=== PATIENT | male | born 1970 | race Caucasian/White ===

== ENCOUNTER 2019-03-29 10:14 | Outpatient (RCR) | payer OTHER, SELFPAY ==
[2019-03-29 10:30] VITALS: BP_SYST 150
--- NOTE | 2019-03-29 11:33 | PTOPEVAL ---
PHYSICAL THERAPY EVALUATION AND PLAN OF CARE 03-29-2019 The PT evaluation was completed for the diagnosis of L shoulder pain. The plan of treatment is for 1x/week for 4 weeks. Thank you for referring this patient to [facility]. Please review, sign, date and return this plan of care [facility]. I agree with and certify that the following plan of care is medically necessary. 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 Cardiovascular History Hx Cardiac Surgery Yes: 2 cardiac stents Hx Hypertension Yes: meds Hx Myocardial Infarction Yes: [place] x 1; Respiratory History Hx Chronic Obstructive Pulmonary Disease Yes: inhaler PRN (COPD) Hx Other Respiratory Disorders Yes: seasonal allergies Gastrointestinal History Hx Gastrointestinal Disorders No Significant History Musculoskeletal History Hx Spinal Surgery Yes: back surgery 2013 2x- lumbar laminectomy & discectomy Endocrine History Hx Diabetes Yes: borderline, monitoring HEENT History Hx HEENT Disorders No Significant History Integumentary History Hx Skin Disorders No Significant History Evaluation Information Problem Diagnosis L shoulder pain Onset 2&1/2 months Subjective Information gradual increase in pain, no Query Text:As Reported By Patient/ trauma or injury to shoulder/ Family arm; possibly due to repetitive and overhead work; Diagnostic Tests X-Rays For This Problem No MRI For This Problem No Other Tests For This Problem No Previous Treatments Previous Treatments For This Problem no PT for shoulder Prior Level of Function Activity Level (Last 3 Months) 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
--- NOTE | 2019-05-05 10:41 | PCPTNOTE ---
PHYSICAL THERAPY DISCHARGE 05-05-2019 Attending Provider: Lamine Lane MD Patient:Job Hassan Date of :1970 Mr. Hassan has not returned for any further treatments since the PT evaluation on 03/29/2019, for the diagnosis of L shoulder pain. Therefore he will be discharged from therapy at this time. The goals were not assessed. Thank you for referring Job to [facility]. Please review, sign, date and return this discharge summary [facility]. I have been updated about the patient's current status and I agree with discharge from the above service at this time. Referring Physician Date
== END 2019-05-05 11:02 | disposition home or self-care (01) ==
LOC: ANHPT 10:14
PROVIDERS: PCP Family Medicine; Visit Provider Family Medicine
DX: M25.512 Pain in left shoulder (principal)
CPT/HCPCS: 97110; 97161

== ENCOUNTER 2019-04-08 06:34 | Outpatient (CLI) | payer OTHER, SELFPAY ==
[2019-04-08 08:33] LABS: Basophils Absolute Auto 0.1 K/mm3 (0.0-0.1); Basophils Percent Auto 1.2 % (0.2-1.2); Eosinophils Absolute Auto 0.1 K/mm3 (0-0.3); Eosinophils Percent Auto 2.1 % (0-4.4); Hematocrit 40.2 % (42.0-52.0); Hemoglobin 13.3 g/dL (14.0-18.0); Immature Granulocyte Absolute 0.03 K/mm3 (0.00-0.031); Immature Granulocyte Percent A 0.5 % (0-0.5); Immature Platelet Fraction Pct 5.2 % (0.9-11.2); Lymphocytes Absolute Auto 1.53 K/mm3 (0.9-3.2); Lymphocytes Percent Auto 26.7 % (18.3-44.2); Mean Corpuscular HGB Conc 33.1 g/dl (32-36); Mean Corpuscular Hemoglobin 27.9 pg (26-34); Mean Corpuscular Volume 84.3 fl (80-100); Mean Platelet Volume 11.3 fl (7.4-10.4); Monocytes Absolute Auto 0.5 K/mm3 (0.1-0.6); Monocytes Percent Auto 8.9 % (2.6-8.5); Neutrophils Absolute Auto 3.5 K/mm3 (1.3-6.7); Neutrophils Percent Auto 60.6 % (45.5-73.1); Platelet Count Result 208 k/mm3 (150-375); Red Blood Count 4.77 M/mm3 (4.6-6.20); Red Cell Distribution Width 12.1 % (11.5-14.5); White Blood Count 5.7 K/mm3 (4.5-10.0)
[2019-04-08 08:45] LABS: Alanine Aminotransferase 39 U/L (4-50); Albumin Level 4.7 g/dL (3.5-5.1); Alkaline Phosphatase 51 U/L (38-126); Aspartate Amino Transferase 40 U/L (17-59); Bilirubin,Total 0.5 mg/dL (0.2-1.3); Blood Urea Nitrogen 20 mg/dL (9-20); Calcium 9.5 mg/dL (8.4-10.2); Carbon Dioxide 28 mmol/L (22-30); Chloride 99 mmol/L (98-107); Cholesterol 179 mg/dL (0-200); Estimated Glomerular Filt Rate > 60; Glucose 113 mg/dL (75-110); HDL Direct 31 mg/dL; Potassium 3.9 mmol/L (3.4-5.0); Sodium 140 mmol/L (137-145); Triglycerides 148 mg/dL (<150)
[2019-04-08 08:56] LABS: LDL Cholesterol Direct 133 mg/dL
[2019-04-08 08:59] LABS: Alanine Aminotransferase 39 U/L (4-50); Albumin Level 4.6 g/dL (3.5-5.1); Alkaline Phosphatase 53 U/L (38-126); Aspartate Amino Transferase 39 U/L (17-59); Bilirubin,Total 0.4 mg/dL (0.2-1.3); Blood Urea Nitrogen 19 mg/dL (9-20); Calcium 9.5 mg/dL (8.4-10.2); Carbon Dioxide 27 mmol/L (22-30); Chloride 99 mmol/L (98-107); Estimated Glomerular Filt Rate > 60; Glucose 114 mg/dL (75-110); Potassium 3.8 mmol/L (3.4-5.0); Sodium 140 mmol/L (137-145)
[2019-04-08 09:15] LABS: Prostate Specific Antigen 0.6 ng/mL (< OR = 4.0)
== END 2019-04-08 06:35 | disposition home or self-care (01) ==
PROVIDERS: Internal Medicine Cardiovascular Disease; PCP Family Medicine; Visit Provider Family Medicine
DX: E78.5 Hyperlipidemia, unspecified (principal); I10 Essential (primary) hypertension; E78.2 Mixed hyperlipidemia; Z12.5 Encounter for screening for malignant neoplasm of prostate
CPT/HCPCS: 36415; 80048; 80053; 80061; 80076; 82248; 84153; 85025; 85055

== ENCOUNTER 2020-04-13 07:00 | Outpatient (CLI) | payer OTHER, SELFPAY ==
[2020-04-13 07:32] LABS: Basophils Absolute Auto 0.1 K/mm3 (0.0-0.1); Basophils Percent Auto 1.6 % (0.2-1.2); Eosinophils Absolute Auto 0.2 K/mm3 (0-0.3); Eosinophils Percent Auto 3.7 % (0-4.4); Hematocrit 41.5 % (42.0-52.0); Hemoglobin 14.3 g/dL (14.0-18.0); Immature Granulocyte Absolute 0.01 K/mm3 (0.00-0.031); Immature Granulocyte Percent A 0.2 % (0-0.5); Lymphocytes Absolute Auto 1.83 K/mm3 (0.9-3.2); Lymphocytes Percent Auto 35.7 % (18.3-44.2); Mean Corpuscular HGB Conc 34.5 g/dl (32-36); Mean Corpuscular Hemoglobin 28.4 pg (26-34); Mean Corpuscular Volume 82.3 fl (80-100); Mean Platelet Volume 10.2 fl (7.4-10.4); Monocytes Absolute Auto 0.5 K/mm3 (0.1-0.6); Monocytes Percent Auto 9.2 % (2.6-8.5); Neutrophils Absolute Auto 2.6 K/mm3 (1.3-6.7); Neutrophils Percent Auto 49.6 % (45.5-73.1); Platelet Count Result 199 k/mm3 (150-375); Red Blood Count 5.04 M/mm3 (4.6-6.20); Red Cell Distribution Width 11.8 % (11.5-14.5); White Blood Count 5.1 K/mm3 (4.5-10.0)
[2020-04-13 07:45] LABS: Alanine Aminotransferase 43 U/L (4-50); Albumin Level 4.5 g/dL (3.5-5.1); Alkaline Phosphatase 47 U/L (38-126); Anion Gap 8 mmol/L (8-16); Aspartate Amino Transferase 38 U/L (17-59); Bilirubin,Total 0.5 mg/dL (0.2-1.3); Blood Urea Nitrogen 20 mg/dL (9-20); Calcium 9.2 mg/dL (8.4-10.2); Carbon Dioxide 26 mmol/L (22-30); Chloride 106 mmol/L (98-107); Cholesterol 184 mg/dL (0-200); Estimated Glomerular Filt Rate > 60; Glucose 126 mg/dL (75-110); HDL Direct 28 mg/dL; Potassium 4.4 mmol/L (3.4-5.0); Sodium 140 mmol/L (137-145); Triglycerides 206 mg/dL (<150)
[2020-04-13 07:56] LABS: LDL Cholesterol Direct 126 mg/dL
[2020-04-13 08:51] LABS: Thyroid Stimulating Hormone Reflex 0.504 uIU/mL (0.465-4.68)
[2020-04-16 19:08] LABS: PSA, Total 0.5 ng/mL (<=4.0)
== END 2020-04-13 07:01 | disposition home or self-care (01) ==
LOC: ANHLAB 07:02
PROVIDERS: PCP Family Medicine; Visit Provider Internal Medicine Cardiovascular Disease
DX: Z13.9 Encounter for screening, unspecified (principal); E78.2 Mixed hyperlipidemia
CPT/HCPCS: 36415; 80053; 80061; 83036; 84153; 84154; 84443; 85025

== ENCOUNTER → 2020-05-10 07:01 | Outpatient (CLI) | payer OTHER, SELFPAY ==
[2020-05-11 01:42] LABS: SARS-CoV-2 RNA PCR Negative
== END ==
PROVIDERS: PCP Family Medicine; Visit Provider Nurse Practitioner Family
DX: Z20.822 Contact with and (suspected) exposure to COVID-19 (principal)
CPT/HCPCS: C9803; U0003; U0005

== ENCOUNTER → 2020-06-27 13:32 | Outpatient (CLI) | payer OTHER, SELFPAY ==
--- NOTE | ~2020-06-27 | XR_ITS ---
XR hip LT 2V w AP pelvis DATE: 06/27/2020 13:51 INDICATION: Left hip injury TECHNIQUE: AP pelvis. AP and lateral views of left hip COMPARISON: 07/01/2013 left hip FINDINGS: Right sided lumbar pedicles screws and rods and interbody spinal fusion at L4-5 and L5-S1. The pubic symphysis and sacroiliac joints are intact. No pelvic fracture or bone destruction is detected. No fracture, dislocation, avascular necrosis or bone destruction of the left hip. Hip joint spaces ar e symmetric. IMPRESSION: Status post lumbar spinal fusion Reviewed, dictated and finalized at location A.
== END ==
PROVIDERS: PCP Family Medicine; Visit Provider Physician Assistant Medical
DX: S79.912A Unspecified injury of left hip, initial encounter (principal); Z98.1 Arthrodesis status
CPT/HCPCS: 73502

== ENCOUNTER → 2020-07-09 16:15 | Outpatient (CLI) | payer OTHER, SELFPAY ==
--- NOTE | ~2020-07-09 | MR_ITS ---
EXAMINATION: MR hip LT wo con DATE: 07/09/2020 17:57 INDICATION: Left hip and groin pain radiating to the knee with tingling sensation post injury 3 weeks prior. TECHNIQUE: Magnetic resonance imaging (MRI) of the left hip was performed without intravenous contra st. Sequences included full-field axial PD-weighted FS FSE and T1-weighted FSE, coronal of the pelvis with PD-weighted FS FSE, T2-weighted FS FSE and T1-weighted FSE, small field of view of the left hi p with axial PD-weighted FS FSE, sagittal PD-weighted FS FSE, coronal T2-weighted FS FSE and coronal PD weighted FS FSE. Additional radial T1-weighted FGR oriented orthogonal to the acetabular rim were obtained for evaluation of the labrum. COMPARISON: Radiograph dated 06/27/2020 FINDINGS: Bones/labrum/cartilage: Magnetic field artifact associated with right-sided vertical praveen and pedicle screw fixation at L3-L5. There is additional anterior spinal fusion with interbody bone graft cages at L3-L4 and L4-L5. Align ment is normal. No fracture, avascular necrosis or pathologic marrow replacing process. Mild osteoar thritis at the left hip with mild partial-thickness cartilage loss with nonuniform joint space narrow ing. High-grade chondromalacia with underlying subarticular cystic change at the anterosuperior left acetabulum. There is an adjacent small os acetabula. The more posterior superolateral to posterior leyva perior glenoid labrum appears thickened with mild amorphous increased signal consistent with labral d egeneration without discrete labral tear. Mild osteoarthritis at the contralateral right hip with mar ginal osteophytes extending into the superolateral to posterior superior right acetabular labrum. Fluid: Symmetric physiologic amount of fluid within both hip joints. Soft tissues: Normal and symmetric muscle bulk and signal in the pelvis and visualized proximal thighs. The iliopso as, gluteal and proximal hamstring tendons are normal. Mild sigmoid diverticulosis without adjacent i nflammatory change to suggest diverticulitis. Limited evaluation of visceral organs of the pelvis is otherwise unremarkable. No pathologically enlarged pelvic/inguinal lymphadenopathy. IMPRESSION: 1. Mild left hip osteoarthritis with high-grade chondral malacia with subarticular cystic change at t he anterosuperior and superolateral acetabulum and with superolateral to posterior superior labral de generation. Reviewed, dictated and finalized at location A. IMPRESSION: 1. Mild left hip osteoarthritis with high-grade chondral malacia with subarticu lar cystic change at the anterosuperior and superolateral acetabulum and with s uperolateral to posterior superior labral degeneration.
== END ==
PROVIDERS: PCP Family Medicine; Visit Provider Physician Assistant Medical
DX: M16.12 Unilateral primary osteoarthritis, left hip (principal)
CPT/HCPCS: 73721

== ENCOUNTER 2020-08-16 08:12 | Outpatient (CLI) | payer OTHER, SELFPAY ==
--- NOTE | ~2020-08-16 | XR_ITS ---
EXAMINATION: XR lg joint inject/aspiration DATE: 08/16/2020 09:33 INDICATION: Left hip pain TECHNIQUE: A time-out was performed to verify the patient's name, date of , and procedure to b e performed. The procedure including the risks and benefits was discussed with the patient. Risks dis cussed included bleeding and infection. The patient understood the risks and agreed to proceed. The skin overlying the left hip joint was prepared and draped in usual sterile fashion. The skin and subc utaneous tissues were infiltrated with 1% lidocaine for local anesthesia. A 20 G needle was advanced under fluoroscopic guidance into the joint. Subsequently, injectate consisting of 2 cc of 0.5% bupiva jennifer, 80 mg of methylprednisolone, and 5 cc of saline was instilled. The needle was removed and the entry site was cleaned and dressed. There were no immediate complications. Fluoroscopy exposure time was 0.2 minutes. The DAP for this procedure was 1.323 Gycm2. FINDINGS: Real-time fluoroscopy demonstrates the needle in the left hip joint. Patient's pain prior t o procedure:06/24. Patient's pain following the procedure: 03/27. IMPRESSION: 1. Successful left hip injection of local anesthetic and steroid with decrease in the patient's prese nting pain. Reviewed, dictated and finalized at location B. IMPRESSION: 1. Successful left hip injection of local anesthetic and steroid with decrease in the patient's presenting pain.
== END 2020-08-16 08:13 | disposition home or self-care (01) ==
LOC: CHSIMG 08:13
PROVIDERS: PCP Family Medicine; Visit Provider Orthopaedic Surgery
DX: M16.12 Unilateral primary osteoarthritis, left hip (principal)
CPT/HCPCS: 20610; J1030

== ENCOUNTER 2020-09-04 14:39 | Outpatient (RCR) | payer OTHER, SELFPAY ==
--- NOTE | 2020-09-04 16:00 | PTOPEVAL ---
Thank you for referring Job Hassan to [facility].? The patient is scheduled to be seen for therapy? ____x/week for ___ weeks. Please review, sign, date and return this plan of care [facility]. I agree with and certify that the following plan of care is medically necessary. 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 Cardiovascular History Hx Cardiac Surgery Yes: 2 cardiac stents Hx Hypertension Yes: meds Hx Myocardial Infarction Yes: [place] x 1; Respiratory History Hx Chronic Obstructive Pulmonary Disease Yes: inhaler PRN (COPD) Hx Other Respiratory Disorders Yes: seasonal allergies Gastrointestinal History Hx Gastrointestinal Disorders No Significant History Musculoskeletal History Hx Spinal Surgery Yes: back surgery 2014 2x- lumbar laminectomy & discectomy Endocrine History Hx Diabetes Yes: borderline, monitoring HEENT History Hx HEENT Disorders No Significant History Integumentary History Hx Skin Disorders No Significant History Evaluation Information Problem Diagnosis L hip pain, DJD Onset 06/19/20 Additional Evaluation Detail LEFS = 58% functionally declined Subjective Information patient reports he was Query Text:As Reported By Patient/ standing on a hillside at work Family . he reports he slipped and had pain starting in the groin . he reports he began to have pain in the L hip, groin, thigh. he reports he had an injection to the L hip on 04/07. he reports he did have an injection anteriorly to the L hip. he reports he has felt better since his injection as far as thigh pain goes. however, he continues to have the same pain in the L hip and groin. 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 he reports he has been having difficulty
--- NOTE | 2020-10-04 10:58 | PTOPEVAL ---
Thank you for referring Job Hassan to [facility].? The patient is scheduled to be seen for therapy? ____x/week for ___ weeks. Please review, sign, date and return this plan of care [facility]. I agree with and certify that the following plan of care is medically necessary. 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 Cardiovascular History Hx Cardiac Surgery Yes: 2 cardiac stents Hx Hypertension Yes: meds Hx Myocardial Infarction Yes: [place] x 1; Respiratory History Hx Chronic Obstructive Pulmonary Disease Yes: inhaler PRN (COPD) Hx Other Respiratory Disorders Yes: seasonal allergies Gastrointestinal History Hx Gastrointestinal Disorders No Significant History Musculoskeletal History Hx Spinal Surgery Yes: back surgery 2013 2x- lumbar laminectomy & discectomy Endocrine History Hx Diabetes Yes: borderline, monitoring HEENT History Hx HEENT Disorders No Significant History Integumentary History Hx Skin Disorders No Significant History Evaluation Information Problem Diagnosis L hip pain, DJD Onset 06/19/20 Additional Evaluation Detail LEFS = 56% functionally declined Subjective Information patient reports he continues Query Text:As Reported By Patient/ to have pain deep in the L hip Family . he reports pain increased with activity and with sitting . he reports no symptoms down the LE. he reports he is still taking pain meds, but his pain reaches a 5/10. he reports he is worried about being able to return to work. he reports follow up with MD in 2-3 weeks. Pain Assessment Timing of Pain Assessment Timing of Pain Assessment Assessment Pain Scale Pain Scale Used Numeric (1 - 10) Self Report Pain Assessment Left Hip(s) Reported Pain Level 3 Greatest Pain Intensity 5 Pain Score Pain Score 3: Self Report Interventions Used Interventions Used By Clinician
== END 2020-10-04 11:35 | disposition home or self-care (01) ==
LOC: CHSPT 14:39
PROVIDERS: PCP Family Medicine; Visit Provider Orthopaedic Surgery
DX: M16.12 Unilateral primary osteoarthritis, left hip (principal)
CPT/HCPCS: 97014; 97110; 97140; 97161; G0283

== ENCOUNTER 2020-11-29 08:35 | Outpatient (CLI) | payer OTHER, SELFPAY ==
--- NOTE | ~2020-11-29 | XR_ITS ---
EXAMINATION: XR lg joint inject/asp w image EXAM DATE: 11/29/2020 10:27 INDICATION: Left Hip Arthritis, pain x5-6mo, prev inj in August-lasted 2wk. Left hip pain 5-6 months, p revious injection August stated that provided most relief for about 2 weeks. Contrast allergy to Omnipa que, patient reportedly had seizure. TECHNIQUE: This procedure was performed by Dr. Yusuf Mccormack, radiologist. I discussed procedure inclu ding the risks, and alternatives with the patient. Risks discussed included left hip. The patient und erstood the risks and agreed to proceed. A time-out was performed to verify the patient's name, date of , and procedure. The skin over lying the left hip joint was prepped and draped in usual sterile fashion. Anesthetic was administere d with 3 milliliters 1% lidocaine subcutaneously. A 22 G needle was advanced under fluoroscopic guid ance into the joint. Approximately 2 mL of gas was injected into the hip joint instead of contrast. A total of 80 mg Depo-Medrol, 2 mL of 0.5% bupivacaine was injected. The needle was removed and the e ntry site was cleaned and dressed. There were no immediate complications. Pulsed dose reduction flu oroscopy was used with fluoroscopic time of 0.1. The DAP for this procedure was 0.2 Gycm2. A total of 3 images obtained for the exam. The procedure was performed on 11/29/2020. FINDINGS: It was difficult to visualize the left hip injected gas bubble under fluoroscopy. No image was captured of the hip. Patient reported preprocedure left hip pain level 6/10, postprocedure pain l evel 02/24. IMPRESSION: 1. Successful left hip joint injection with steroids, bupivacaine. 2. Preprocedure left hip pain 6/10, postprocedure 10. Reviewed, dictated and finalized at location B. IMPRESSION: 1. Successful left hip joint injection with steroids, bupivacaine. 2. Preprocedure left hip pain 6/10, postprocedure 02/24.
== END 2020-11-29 08:36 | disposition home or self-care (01) ==
LOC: CHSIMG 08:36
PROVIDERS: PCP Family Medicine; Visit Provider Orthopaedic Surgery
DX: M16.12 Unilateral primary osteoarthritis, left hip (principal)
CPT/HCPCS: 20610; 77002; J1030; Q9965

== ENCOUNTER 2021-07-02 06:54 | Outpatient (CLI) | payer BC, SELFPAY ==
[2021-07-02 08:27] LABS: Alanine Aminotransferase 63 U/L (6-50); Albumin Level 4.6 g/dL (3.5-5.1); Alkaline Phosphatase 55 U/L (38-126); Anion Gap 12 mmol/L (8-16); Aspartate Amino Transferase 52 U/L (17-59); Bilirubin,Total 0.7 mg/dL (0.2-1.3); Blood Urea Nitrogen 19 mg/dL (9-20); Calcium 9.5 mg/dL (8.4-10.2); Carbon Dioxide 27 mmol/L (22-30); Chloride 103 mmol/L (98-107); Cholesterol 175 mg/dL (0-200); Estimated Glomerular Filt Rate > 60; Glucose 130 mg/dL (65-110); HDL Direct 28 mg/dL; Potassium 4.2 mmol/L (3.4-5.0); Sodium 142 mmol/L (137-145); Triglycerides 252 mg/dL (<150)
[2021-07-02 08:42] LABS: LDL Cholesterol Direct 104 mg/dL
== END 2021-07-02 06:55 | disposition home or self-care (01) ==
LOC: ANHLAB 06:56
PROVIDERS: PCP Family Medicine; Visit Provider Internal Medicine Cardiovascular Disease
DX: E78.2 Mixed hyperlipidemia (principal)
CPT/HCPCS: 36415; 80053; 80061

== ENCOUNTER 2021-07-04 08:43 | Outpatient (CLI) | payer BC, SELFPAY ==
--- NOTE | ~2021-07-04 | XR_ITS ---
XR lg joint inject/asp w image INDICATION: Left hip pain TECHNIQUE: After discussing the procedure with the patient, including the possible risks, complicatio ns, and benefits, oral consent was obtained. A timeout was performed verifying the patient's name, d ate of , and site of injection. The skin overlying the joint was prepped and draped in usual st erile fashion. Anesthetic was administered with 1% lidocaine subcutaneously. A 22 G needle was adva nced under fluoroscopic guidance into the left hip joint. Contrast was not injected due to patient al lergy to dye. Injectate consisting of 80 mg Depo-Medrol and 2 cc 0.5% Marcaine were instilled. The n eedle was removed and the entry site was cleaned and dressed. There were no immediate complications. ] IMPRESSION: 1. Successful left hip injection of anesthetic and steroid. Reviewed, dictated and finalized at location B.
== END 2021-07-04 08:44 | disposition home or self-care (01) ==
LOC: CHSIMG 08:45
PROVIDERS: PCP Family Medicine; Visit Provider Orthopaedic Surgery
DX: M16.12 Unilateral primary osteoarthritis, left hip (principal)
CPT/HCPCS: 20610; 77002; J1030

== ENCOUNTER 2022-09-05 06:57 | Outpatient (CLI) | payer OTHER, SELFPAY ==
[2022-09-05 08:01] LABS: Anion Gap 9 mmol/L (8-16); Blood Urea Nitrogen 20 mg/dL (9-20); Calcium 9.4 mg/dL (8.4-10.2); Carbon Dioxide 27 mmol/L (22-30); Chloride 103 mmol/L (98-107); Estimated Glomerular Filt Rate > 60; Glucose 128 mg/dL (65-110); Sodium 139 mmol/L (137-145)
[2022-09-05 08:02] LABS: Hematocrit 42.4 % (42.0-52.0); Hemoglobin 14.4 g/dL (14.0-18.0); Mean Corpuscular Hemoglobin 28.6 pg (26-34); Mean Corpuscular Volume 84.3 fl (80-100); Mean Platelet Volume 10.8 fl (7.4-10.4); Platelet Count Result 216 k/mm3 (150-375); Red Blood Count 5.03 M/mm3 (4.6-6.20)
[2022-09-05 08:31] LABS: Prostate Specific Antigen 0.7 ng/mL (< OR = 4.0); Thyroid Stimulating Hormone 0.925 uIU/mL (0.465-4.680)
[2022-09-05 09:41] LABS: Vitamin D 25 Hydroxy 36.8 ng/mL
[2022-09-05 11:07] LABS: Hemoglobin A1C 6.7 % (<5.7)
== END 2022-09-05 06:58 | disposition home or self-care (01) ==
LOC: ANHASCLAB 07:00 → ANHLAB 07:01
PROVIDERS: PCP Family Medicine; Visit Provider Nurse Practitioner Family
DX: R73.09 Other abnormal glucose (principal); D64.9 Anemia, unspecified; F41.9 Anxiety disorder, unspecified; E55.9 Vitamin D deficiency, unspecified; Z12.5 Encounter for screening for malignant neoplasm of prostate
CPT/HCPCS: 36415; 80048; 82306; 83036; 84153; 84443; 85027; G0103

== ENCOUNTER 2024-03-14 07:45 | Outpatient (CLI) | payer OTHER, MEDICARE, SELFPAY ==
--- NOTE | ~2024-03-14 | XR_ITS ---
AP view of the pelvis and AP and lateral views of the left hip Clinical history: Pain Findings: No acute fracture or dislocation is seen. Osseous alignment is anatomic. Bilateral hip and SI joint spaces are preserved. Lumbar spinal fixation hardware noted. Soft tissues are unremarkable. Impression: No abnormality of the hip joints. Lumbar spinal fixation hardware partially imaged. Reviewed, dictated and finalized at location M. CREMATORY WORKER Impression: No abnormality of the hip joints. Lumbar spinal fixation hardware partially imaged.
--- OUTSIDE RECORDS SUMMARY | 2024-03-14 07:53 | XMS_ITS | Data Portability ---
Author Organization Ayana DIANA Address [address] [facility] [place] [address] Assessment No assessment recorded. Plan of Treatment Reminders Order Date Submit Date Provider Last Modified By Organization Details Last Modified Time Details Appointments None recorded. Lab PSA, serum or plasma 2017 018 [facility], [facility] [address], [address], [place], [address], 8 08:21:52 unlisted lab - CMP12+2AC 2017 018 [facility], [facility] [address], [address], [place], [address], 8 08:21:50 lipid panel, serum 2017 018 [facility], [address] [place], [place] [address]jan[address], [address], [place], [address], 8 08:21:51 CBC 2017 018 [facility], [address] [place], [place] [address]jan[address], [address], [place], [address], 8 08:21:51 TSH + free T4, serum 2017 018 [facility], [address] [facility] [address], [address], [place], [address], 8 08:21:50 Referral None recorded. Procedures None recorded. Surgeries None recorded. Imaging None recorded. Medication Orders fluticason e propionate 50 mcg/actuat ion nasal spray,susp ension 2017 018 INTERFACE Not available 8 15:48:22 Hibiclens 4 % topical liquid 2017 018 INTERFACE Not available 8 15:48:24 Patient TargetsNo targets recorded. Patient InstructionsNo instructions recorded. Reason for Referral None Reported. Results Created Date Observation Date Name Description Value Unit Range Abnormal Flag Note LastModifiedBy Organization Detail LastModifiedTime 02/23/19 18 02/24/2017 TSH + free T4, serum TSH 0.909 uIU/m L 0.450- 4.500 Not Available [facility] ([facility]) [address] [place], [address], 02/24/2017 08:21:50 02/23/19 18 02/24/2017 TSH + free T4, serum T4,free(dire ct) 1.06 NG/dL 0.82-1 .77 Not Available [facility] ([facility]) [address] [place], [address], 02/24/2017 08:21:50 02/23/19 18 02/24/2017 CMP12 +2AC glucose, serum 102 mg/dL 65-99 above high normal Not Available [facility] ([facility]) [address] [place], [address], 02/24/2017 08:21:50 02/23/1902/24/2017 CMP12 +2AC uric acid, serum 6.2 mg/dL 3.7-8. 6 Thera maurice santoyo t for gout patie nts: <6.0 Not Available [facility] ([facility]) [address] [place], [address], 02/24/2017 08:21:50 02/23/19 18 02/24/2017 CMP12 +2AC BUN 16 mg/dL 6-24 Not Available [facility] ([facility]) [address] [place], [address], 02/24/2017 08:21:50 02/23/19 18 02/24/2017 CMP12 +2AC creatinine, serum 0.93 mg/dL 0.76-1 .27 Not Available [facility] ([facility]) [address] [facility], [place], [address], 02/24/2017 08:21:50 02/23/19 18 02/24/2017 CMP12 +2AC eGFR if nonafricn AM 99 mL/mi n/1.7 3 >59 Not Available [facility] ([facility]) [address] [facility] [place], [address], 02/24/2017 08:21:50 02/23/19 18 02/24/2017 CMP12 +2AC eGFR if africn AM 114 mL/mi n/1.7 3 >59 Not Available [facility] ([facility]) [address] [facility], [place], [address], 02/24/2017 08:21:50 02/23/19 18 02/24/2017 CMP12 +2AC BUN/creatini ne ratio 17 9-20 Not Available [facility] ([facility]) [address] [place], [address], 02/24/2017 08:21:50 02/23/19 18 02/24/2017 CMP12 +2AC sodium, serum 143 mmol/ L 134-14 4 Not Available [facility] ([facility]) [address] [place], [address], 02/24/2017 08:21:50 02/23/19 18 02/24/2017 CMP12 +2AC potassium, serum 3.8 mmol/ L 3.5-5. 2 Not Available [facility] ([facility]) [address] [place], [address], 02/24/2017 08:21:50 02/23/19 18 02/24/2017 CMP12 +2AC chloride, serum 102 mmol/ L 96-106 Not Available [facility] ([facility]) [address] [facility] [place], [address], 02/24/2017 08:21:50 02/23/19 18 02/24/2017 CMP12 +2AC calcium, serum 9.5 mg/dL 8.7-10 .2 Not Available [facility] ([facility]) [address] [facility] [place], [address], 02/24/2017 08:21:50 02/23/1902/24/2017 CMP12 +2AC protein, total, serum 6.8 g/dL 6.0-8. 5 Not Available [facility] ([facility]) [address] [facility] [place], [address], 02/24/2017 08:21:50 02/23/19 18 02/24/2017 CMP12 +2AC albumin, serum 4.4 g/dL 3.5-5. 5 Not Available [facility] ([facility]) [address] [facility] [place], [address], 02/24/2017 08:21:50 02/23/1902/24/2017 CMP12 +2AC globulin, total 2.4 g/dL 1.5-4. 5 Not Available [facility] ([facility]) [address] [facility] [place], [address], 02/24/2017 08:21:50 02/23/19 18 02/24/2017 CMP12 +2AC A/G ratio 1.8 1.2-2. 2 Not Available [facility] ([facility]) [address] [facility] [place], [address], 02/24/2017 08:21:50 02/23/1902/24/2017 CMP12 +2AC bilirubin, total 0.5 mg/dL 0.0-1. 2 Not Available [facility] ([facility]) [address] [facility] [place], [address], 02/24/2017 08:21:50 02/23/19 18 02/24/2017 CMP12 +2AC alkaline phosphatase, S 44 IU/L 39-117 Not Available [facility] ([facility]) [address] [place], [address], 02/24/2017 08:21:50 02/23/19 18 02/24/2017 CMP12 +2AC AST (SGOT) 23 IU/L 0-40 Not Available [facility] ([facility]) [address] [place], [address], 02/24/2017 08:21:50 02/23/19 18 02/24/2017 CMP12 +2AC ALT (SGPT) 26 IU/L 0-44 Not Available [facility] ([facility]) [address] [place], [address], 02/24/2017 08:21:50 02/23/19 18 02/24/2017 CBC WBC 8.0 x10e3 /uL 3.4-10 .8 Not Available [facility] ([facility]) [address] [place], [address], 02/24/2017 08:21:51 02/23/19 18 02/24/2017 CBC RBC 4.47 x10e6 /uL 4.14-5 .80 Not Available [facility] ([facility]) [address] [facility] [place], [address], 02/24/2017 08:21:51 02/23/1902/24/2017 CBC hemoglobin 12.4 g/dL 13.0-1 7.7 below low normal Not Available [facility] ([facility]) [address] [facility] [place], [address], 02/24/2017 08:21:51 02/23/19 18 02/24/2017 CBC hematocrit 37.2 % 37.5-5 1.0 below low normal Not Available [facility] ([facility]) [address] [facility] [place], [address], 02/24/2017 08:21:51 02/23/19 18 02/24/2017 CBC MCV 83 fL 79-97 Not Available [facility] ([facility]) [address] [place], [place], [address], 02/24/2017 08:21:51 02/23/19 18 02/24/2017 CBC MCH 27.7 pg 26.6-3 3.0 Not Available [facility] ([facility]) [address] [place], [place], [address], 02/24/2017 08:21:51 02/23/19 18 02/24/2017 CBC MCHC 33.3 g/dL 31.5-3 5.7 Not Available [facility] ([facility]) [address] [place], [place], [address], 02/24/2017 08:21:51 02/23/19 18 02/24/2017 CBC RDW 12.9 % 12.3-1 5.4 Not Available [facility] ([facility]) [address] [place], [place], [address], 02/24/2017 08:21:51 02/23/19 18 02/24/2017 CBC platelets 222 x10e3 /uL 150-37 9 Not Available [facility] ([facility]) [address] [place], [place], [address], 02/24/2017 08:21:51 02/23/1902/24/2017 CBC NRBC [employer]BER Not Available [facility] ([facility]) [address] [place], [address], 02/24/2017 08:21:51 02/23/19 18 02/24/2017 lipid panel , serum cholesterol, total 161 mg/dL 100-19 9 Not Available [facility] ([facility] [facility]) [address] [place], [address], 02/24/2017 08:21:51 02/23/19 18 02/24/2017 lipid panel , serum triglyceride s 151 mg/dL 0-149 above high normal Not Available [facility] ([facility]) [address] [facility] [place], [address], 02/24/2017 08:21:51 02/23/19 18 02/24/2017 lipid panel , serum HDL cholesterol 40 mg/dL >39 Not Available [facility]) [address] [facility] [place], [address], 02/24/2017 08:21:51 02/23/19 18 02/24/2017 lipid panel , serum VLDL cholesterol jake 30 mg/dL 5-40 Not Available [facility] ([facility]) [address] [place], [address], 02/24/2017 08:21:51 02/23/1902/24/2017 lipid panel , serum LDL cholesterol calc 91 mg/dL 0-99 Not Available [facility] ([facility]) [address] [place], [address], 02/24/2017 08:21:51 02/23/1902/24/2017 lipid panel , serum comment: [employer] Not Available [facility] ([facility]) [address] [facility] [place], [address], 02/24/2017 08:21:51 02/23/1902/24/2017 lipid panel , serum T. chol/HDL ratio 4.0 ratio _unit s 0.0-5. 0 T. Chol/ HDL Ratio Men Women 1/2 Avg.R isk 3.4 3.3 Avg.R isk 5.0 4.4 2X Avg.R isk 9.6 7.1 3X Avg.R isk 23.4 11.0 Not Available [facility] ([facility]) [address] [facility], [place], [address], 02/24/2017 08:21:51 02/23/1902/24/2017 PSA, serum or plasm a prostate specific Ag, serum 0.9 NG/mL 0.0-4. 0 Abraham ECLIA metho dolog y. Accor ding to the Ameri can [employer] g[employer] iatio n, Serum PSA shoul d decre ase and remai n at undet ectab le level s after radic al prost atect trent. The AUA defin es bioch emica l recur rence as an initi al PSA value 0.2 ng/mL or great er follo wed by a subse quent confi rmato ry PSA value 0.2 ng/mL or great er. Value s obtai paul with diffe rent assay metho ds or kits canno t be used inter messer eably . Resul ts canno t be inter prete d as absol colten evide nce of the prese nce or absen ce of gaurang mcbride se. Not Available [facility] ([facility]) [address] [facility], [place], [address], 02/24/2017 08:21:52 Result Notes None recorded. Problems Name Problem SNOMED Code Status Onset Date Resolution Date Notes Provider Name and Address Organization Details Recorded Time History of placement of stent for coronary artery disease 014772216 Active 2017 012 Stephie Kaiser MD Attn: Accounting ,[address] [place], [address] , [facility] 8 15:29:59 Coronary arterioscl erosis in patient with history of previous myocardial infarction 5337048197275 06 Active 2017 Stephie Kaiser MD Attn: Accounting ,[address] [place], [address] , [facility] 8 15:30:52 Allergic rhinitis 72155382 Active 2017 Stephie Kaiser MD Attn: Accounting ,[address] [place], [address] , [facility] 8 15:31:34 Chews tobacco 38675639 Active 2017 Stephie Kaiser MD Attn: Accounting ,[address] [place], [address] , [place] [facility] 8 15:32:12 Dry skin 27906317 Active 2017 Stephie Kaiser MD Attn: Accounting ,[address] [facility], [place], [address] , [place] [facility] 8 15:32:35 History of cellulitis of skin 483418437 Active 2017 Stephie Kaiser MD Attn: Accounting ,[address] [facility], [place], [address] , [place] [facility] 8 15:34:27 Family history of diabetes mellitus 408585614 Active 2017 Stephie Kaiser MD Attn: Accounting ,[address] [facility], [place], [address] , [place] [facility] 8 15:42:09 Screening for malignant neoplasm of prostate Active 2017 Stephie Kaiser MD Attn: Accounting ,[address] [facility], [place], [address] , [place] [facility] 8 15:44:39 Fatigue 33208778 Active 2017 Stephie Kaiser MD Attn: Accounting ,[address] [facility], [place], [address] , [place] [facility] 8 15:45:22 Hyperglyce tyrone 38066565 Active 2017 Stephie Kaiser MD Attn: Accounting ,[address] [facility], [place], [address] , [place] [facility] 8 18:32:47 Anemia 938646259 Active 2017 Stephie Kaiser MD Attn: Accounting ,[address] [facility], [place], [address] , [place] [facility] 8 18:33:05 Active or passive immunizati on Active 2016 Lorena Gaviria PA-C Attn: Accounting ,[address] [facility], [place], [address] , [place] [facility] 7 12:36:15 Problem Notes None recorded. Medical Equipment None Reported. Allergies Allergen ID Allergen Name Allergen Category Reaction Reaction Severity Criticality Documentation Date Start Date Code Code System Note Provider Name and Address Organization Details Recorded Time [id number] 5115598m9 2824e Iodinated contrast media (substanc e) medicatio n Not available Not available Not available 02/23/2017 23361 2004 SNOMED Not Available Not Available Not Available Medications Name Sig Start Date Stop Date Status Note LastModified by Organization Details LastModified Time losartan 50 mg tablet active Not Available Not Available No t Available lovastatin 40 mg tablet active Not Available Not Available Not Available oxycodone-ac etaminophen 5 mg-325 mg tablet active Not Available Not Available Not Available ferrous sulfate 325 mg (65 mg iron) tablet Take 1 tablet twice a day by oral route. 2017 active Not Available Not Available Not Avai lable metoprolol tartrate 50 mg tablet 0.5 tabs daily active Not Available Not Available No t Available fluticasone propionate 50 mcg/actuatio n nasal spray,suspen wen Guild by intranasal route for 25 days. active Not Available Not Available No t Available Hibiclens 4 % topical liquid Apply from neck to feet ronnie 2017 active Not Available Not Available Not Avai lable fenofibrate 160 mg tablet active Not Available Not Available Not Available ProAir HFA 90 mcg/actuatio n aerosol inhaler INHALE 2 PUFF(S) EVERY 4 HOURS BY MOUTH active Not Available Not Available No t Available Vitals Date Recorded Body height Provider Name an d Address Organization Details Last Updated DateTime 02/23/2017 180.34 cm Janett Roy [place] [facility] 8 14:51:30 Date Recorded Body mass index (BMI) Body weight Provider Name and Address Organization Details Last Updated DateTime 02/23/2017 28.8 kg/m2 11647.47 g KATHY Roberts - [facility] 0 02/23/2017 14:56:08 Date Recorded Body temperature Provider Name a nd Address Organization Details Last Updated DateTime 02/23/2017 98.3 [degF] KATHY Roberts - [facility] 02/23/19 18 14:56:20 Date Recorded Heart rate Provider Name an d Address Organization Details Last Updated DateTime 02/23/2017 68 /min Janettaparna Roy KATHY [facility] 8 15:01:45 Date Recorded Oxygen saturation Oxygen saturation in Arterial blood by Pulse oximetry Systolic blood pressure Diastolic blood pressure Provider Name and Address Organization Details Last Updated DateTime 02/23/2017 98 % 98 % 126 mm[Hg] 74 mm[Hg] Janett Roy MA [facility] 8 15:01:49 Date Recorded Body height Provider Name an d Address Organization Details Last Updated DateTime 09/13/2017 180.34 cm Ibeth FinleyKATHY [facility] 09/13/2017 17:47:20 Date Recorded Body mass index (BMI) Body weight Provider Name and Address Organization Details Last Updated DateTime 09/13/2017 28.9 kg/m2 90315.05 g Ibeth FinleyKATHY [facility] 17:49:12 Date Recorded Respiratory rate Provider Name a nd Address Organization Details Last Updated DateTime 09/13/2017 92 /min Ibeth KATHY Finley [facility] 09/13/2017 17:49:53 Date Recorded Body temperature Provider Name a nd Address Organization Details Last Updated DateTime 09/13/2017 97.7 [degF] Ibeth JenniffereastonKATHY [facility] 8 17:50:56 Date Recorded Oxygen saturation Oxygen saturation in Arterial blood by Pulse oximetry Provider Name and Address Organization Details Last Updated DateTime 09/13/2017 98 % 98 % Ibeth FinleyKATHY [facility] 09/13/2017 17:50:59 Date Recorded Body height Provider Name an d Address Organization Details Last Updated DateTime 06/06/2016 180.34 cm Ирина miller MA [facility] 06/06/2016 12:28:13 Date Recorded Body weight Body mass index (BMI) Provider Name and Address Organization Details Last Updated DateTime 06/06/2016 47006.75 g 30.2 kg/m2 Ирина Obrien MA [facility] 06/06/2016 12:28:17 Date Recorded Body temperature Provider Name a nd Address Organization Details Last Updated DateTime 06/06/2016 98.5 [degF] Ирина Obrien MA [facility] 06/06/2016 12:28:23 Date Recorded Systolic blood pressure Diastolic blood pressure Provider Name and Address Organization Details Last Updated DateTime 09/13/2017 150 mm[Hg] 86 mm[Hg] Ibeth Finley MA [facility] 09/13/2017 17:49:01 Date Recorded Systolic blood pressure Diastolic blood pressure Provider Name and Address Organization Details Last Updated DateTime 06/06/2016 120 mm[Hg] 80 mm[Hg] Ирина Obrien MA [facility] 06/06/2016 12:28:07 Social History Question Answer Notes LastModified by Organizat ion Details LastModified Time Tobacco Smoking Status Former Smoker quit 6.5 yrs ago Janett Roy MA null, [facility] 02/23/2017 14:57:28 What Was The Date Of Your Most Recent Tobacco Screening? 02/23/2017 Information not available 09/08/2018 Sex: Unknown Functional Status None recorded. Mental Status None recorded. Family History Relationship Description Onset Age of this Age Resolved Age Notes LastModified by Organization Details LastModified Time Mother Diabetes mellitus [email or web address] Not available 2017 14:57:08 Mother Coronary arterioscler osis [email or web address] Not available 2017 14:57:18 Medical History Condition Response High Blood Pressure Y COPD Y Anxiety Disorder Y Muscle, Joint, or Bone Problems Y Immunizations Vaccine Type Date Status Note Provider Nam e and Address Organization Details Recorded Time MMR 06/06/2016 completed Not Available [facility] 03/04/2019 02:33:29 Past Encounters Encounter ID Performer Location Encounter Start Date Encounter Closed Date Diagnosis/Indication Diagnosis SNOMED-CT Code Diagnosis ICD10 Code Diagnosis Note [id number] Lorena Gaviria PA-C [facility] [address] [place] [address] 06/06/2016 12:05:56 06/08/2016 09:57:59 Active or passive immunization 798344350 Z23 [id number] MD Alethea Cobb (Adult Med) [address] [place] [address] 02/23/2017 14:17:56 02/23/2017 15:52:03 Allergic rhinitis 30805108 J30.9 Continue cetirizine History of cellulitis of skin 451775559 Z87.2 Coronary arteriosclerosis in patient with history of previous myocardial infarction 1118204171 98842 I25.2 History of placement of stent for coronary artery disease 890379025 Z95.5 Family his tory of diabetes mellitus 620420876 Z83.3 Screening for malignant neoplasm of prostate 033682929 Z12.5 Fatigue 56572665 R53.83 [id number] Kaiser MD [facility] ([facility] [address] [place] [address] 09/13/2017 15:57:52 09/14/2017 10:35:42 Anemia 888501551 D64.9 Hyperglycemia 23024085 R 73.9 History of placement of stent for coronary artery disease 462769434 Z95.5 Coronary arteriosclerosis in patient with history of previous myocardial infarction 1518122080 51411 I25.2 Health Concerns Section Related Observation LastModified by Organization Detai ls LastModified Time None Recorded Concern Status LastModified by Organization Details LastModified Time None Recorded Advance Directives Directive None Recorded Payers Encounter Date Sequence Insurance Name Policy Number Policy Rayo Covered Member ID Rayo Member ID Guarantor Name 06/06/2016 2 *SELF PAY* Th eli Mo 02/23/2017 1 [facility] [id number] Job Hassan [id number] Job Hassan 02/23/2017 2 [place] Job Hassan [id number] Job Hassan 09/13/2017 1 [facility] [id number] Job Hassan [id number] Job Hassan 09/13/2017 2 [place] [facility] Job Hassan [id number] Job Hassan Notes Date Note Type Note Provider Name and Address Organization Details Recorded Time 06/06/2016 text/html Here for MMR #2 - had #1 placed 4 weeks ago Lorena Gaviria PA-C Attn: Accounting,[address] [facility], [place], [address], [facility] 06/06/2016 13:02:27 02/23/2017 text/html Some sinus drainage and frontal headache. Stephie Kaiser MD Attn: Accounting,[address] [facility], [place], [address], [facility] - [facility] 02/23/2017 15:51:19 09/13/2017 text/html Here for a workplace physical. Not sure if he needs a TB skin test Stephie Kaiser MD Attn: Accounting,[address] [facility], [place], [address], [facility] - [facility] 09/13/2017 18:36:38
--- OUTSIDE RECORDS SUMMARY | 2024-03-14 07:53 | XMS_ITS | Clinical Summary ---
Author Organization [facility] Address [address] [facility] [address] Attn: Epic Prelude ADT NATTY MURILLO [address] Care Team Providers Care Corporate Travel Counselor Name Role Phone Unavailable Primary Care Provider Unavailabl e Allergies No known active allergies Medications atorvastatin (LIPITOR) 40 mg tablet Take 1 Tablet (40 mg) by mouth daily at bedtime. 90 Tablet 2 2022 12:27 PM COAL BAGGER 2 Active fenofibrate (LOFIBRA) 160 mg Tablet Take 1 Tablet (160 mg) by mouth daily to lower triglycerides. 90 Tablet 2 2022 12:27 PM COAL BAGGER 2 Active losartan (COZAAR) 100 mg tablet Take 1 Tablet (100 mg) by mouth daily. 90 Tablet 2 01/15/2022 8:50 AM COAL BAGGER 2 Active metoprolol tartrate (LOPRESSOR) 50 mg tablet TAKE 1 AND 1/2 TABLETS BY MOUTH EVERY MORNING AND TAKE 1 TABLET EVERY EVENING 270 Tablet 2 2022 12:27 PM COAL BAGGER 2 Active oxyCODONE-aceta minophen (PERCOCET) 5-325 mg tablet Take 1 Tablet by mouth 4 times daily. Max Daily Amount: 4 Tablets 120 Tablet 07/27/2021 12:25 PM CDT 2 Active oxyCODONE-aceta minophen (PERCOCET) 5-325 mg tablet Take 1 tablet by mouth 4 (four) times a day as needed for pain (do not fill before 08/25/21) 120 Tablet 08/25/2021 5:16 PM CDT 2 Active oxyCODONE-aceta minophen (PERCOCET) 5-325 mg tablet Take 1 tablet by mouth 4 (four) times a day as needed for pain ( do not fill before 09/24/21) 120 Tablet 09/24/2021 5:26 PM CDT 2 Active cyclobenzaprine (FLEXERIL) 10 mg tablet Take 1 tablet (10 mg total) by mouth nightly as needed for muscle spasms 30 Tablet 1 2 Active oxyCODONE-aceta minophen (PERCOCET) 5-325 mg tablet Take 1 tablet by mouth 4 (four) times a day as needed for pain. 120 Tablet 11/23/2021 2:59 PM CDT 2 Active oxyCODONE-aceta minophen (PERCOCET) 5-325 mg tablet Take 1 Tablet by mouth 4 times daily as needed for pain. Max Daily Amount: 4 Tablets 120 Tablet 10/24/2021 5:02 PM CDT 2 Active nirmatrelvir-ri tonavir (Paxlovid, EUA,) 300(150mg x 2)-100 mg oral pack Take 2 tablets (300 mg) of nirmatrelvir and 1 tablet (100 mg) of ritonavir by mouth twice daily for 5 days. 1 Dose Pack 2 Active oxyCODONE-aceta minophen (PERCOCET) 5-325 mg tablet Take 1 tablet by mouth 4 (four) times a day as needed for pain 120 Tablet 01/22/2022 8:47 AM COAL BAGGER 2 Active oxyCODONE-aceta minophen (PERCOCET) 5-325 mg tablet Take 1 Tablet by mouth 4 times daily as needed for pain. 120 Tablet 12/23/2021 9:02 AM COAL BAGGER 2 Active atorvastatin (LIPITOR) 40 mg tablet Take 1 Tablet (40 mg) by mouth daily at bedtime. 30 Tablet 5 2 Active fenofibrate (LOFIBRA) 160 mg Tablet Take 1 Tablet (160 mg) by mouth daily. 30 Tablet 5 2 Active cyclobenzaprine (FLEXERIL) 10 mg tablet Take 1 tablet (10 mg total) by mouth nightly as needed for muscle spasms 30 Tablet 1 02/21/2022 10:10 AM COAL BAGGER 3 Active oxyCODONE-aceta minophen (PERCOCET) 5-325 mg tablet Take 1 tablet by mouth 4 (four) times a day as needed for pain 120 Tablet 02/21/2022 10:10 AM COAL BAGGER 3 Active ALPRAZolam (XANAX) 0.5 mg tablet Take 1 Tablet (0.5 mg) by mouth 1 time daily as needed for anxiety. 30 Tablet 03/23/2022 9:41 AM COAL BAGGER 3 Active oxyCODONE-aceta minophen (PERCOCET) 5-325 mg tablet Take 1 tablet by mouth 4 (four) times a day as needed for pain. 120 Tablet 03/23/2022 9:41 AM COAL BAGGER 3 Active oxyCODONE-aceta minophen (PERCOCET) 5-325 mg tablet Take 1 tablet by mouth 4 (four) times a day as needed for pain. 120 Tablet 04/22/2022 9:06 AM COAL BAGGER 3 Active oxyCODONE-aceta minophen (PERCOCET) 5-325 mg tablet Take 1 Tablet by mouth 4 times daily as needed for pain. 120 Tablet 06/21/2022 12:37 PM CDT 3 Active oxyCODONE-aceta minophen (PERCOCET) 5-325 mg tablet Take 1 Tablet by mouth 4 times daily as needed for pain. 120 Tablet 05/22/2022 11:35 AM CDT 3 Active triamcinolone acetonide (KENALOG) 0.1 % Cream Apply to the affected area(s) twice daily. 30 Gram 06/04/2022 11:31 AM CDT 3 Active clotrimazole (LOTRIMIN) 1 % Solution Administer 5 drops three times daily for 7 days. 30 mL 06/18/2022 5:22 PM CDT 3 Active neomycin-polymy jw B-hydrocortison e (CORTISPORIN OTIC) 3.5-10,000-1 mg/mL-unit/mL-% otic suspension Administer 4 drops in each ear every 8 hours. 10 mL 06/18/2022 5:22 PM CDT 3 Active oxyCODONE-aceta minophen (PERCOCET) 5-325 mg tablet Take 1 tablet by mouth 4 (four) times a day as needed for pain. 120 Tablet 08/20/2022 9:17 AM CDT 3 Active oxyCODONE-aceta minophen (PERCOCET) 5-325 mg tablet Take 1 tablet by mouth 4 (four) times a day as needed for pain 120 Tablet 07/21/2022 9:42 AM CDT 3 Active oxyCODONE-aceta minophen (PERCOCET) 5-325 mg tablet Take 1 Tablet by mouth 4 times daily as needed for pain. 120 Tablet 09/19/2022 11:12 AM CDT 3 Active metoprolol tartrate (LOPRESSOR) 50 mg tablet Take 1 Tablet (50 mg) by mouth 2 times daily. 180 Tablet 2 09/12/2022 11:34 AM CDT 3 Active losartan (COZAAR) 100 mg tablet Take 1 Tablet (100 mg) by mouth daily. 90 Tablet 2 02/06/2023 10:18 AM COAL BAGGER 3 Active naloxone (NARCAN) 4 mg/spray [place], Non-Aerosol Administer 1 spray into affected nostril(s) as needed for opioid reversal or respiratory depression 2 Each 3 Active oxyCODONE-aceta minophen (PERCOCET) 5-325 mg tablet Take 1 tablet by mouth 4 (four) times a day as needed for pain 120 Tablet 11/18/2022 8:45 AM CDT 3 Active oxyCODONE-aceta minophen (PERCOCET) 5-325 mg tablet Take 1 tablet by mouth 4 (four) times a day as needed for pain 120 Tablet 10/19/2022 10:27 AM CDT 3 Active blood sugar diagnostic Strip TEST BLOOD SUGAR DIRECTED. 50 Each 3 Active Blood-Glucose Meter USE TO TEST BLOOD SUGAR 1 Each 3 Active lancets USE TO TEST BLOOD SUGAR. 102 Each 3 Active oxyCODONE-aceta minophen (PERCOCET) 5-325 mg tablet Take 1 Tablet by mouth 4 times daily as needed for pain. (01/17/23) 120 Tablet 01/17/2023 12:18 PM COAL BAGGER 3 Active oxyCODONE-aceta minophen (PERCOCET) 5-325 mg tablet Take 1 Tablet by mouth 4 times daily as needed for pain. 120 Tablet 12/18/2022 8:50 AM CDT 3 Active oxyCODONE-aceta minophen (PERCOCET) 5-325 mg tablet Take 1 tablet by mouth 4 (four) times a day as needed for pain. 120 Tablet 03/18/2023 2:13 PM COAL BAGGER 4 Active oxyCODONE-aceta minophen (PERCOCET) 5-325 mg tablet Take 1 tablet by mouth 4 (four) times a day as needed for pain. 120 Tablet 02/16/2023 10:21 AM COAL BAGGER 4 Active oxyCODONE-aceta minophen (PERCOCET) 5-325 mg tablet Take 1 tablet by mouth 4 (four) times a day as needed for pain 120 Tablet 05/17/2023 1:06 PM CDT 4 Active oxyCODONE-aceta minophen (PERCOCET) 5-325 mg tablet Take 1 tablet by mouth 4 (four) times a day as needed for pain 120 Tablet 04/17/2023 9:19 AM COAL BAGGER 4 Active fenofibrate (LOFIBRA) 160 mg Tablet Take 1 Tablet (160 mg) by mouth daily to lower triglycerides. 90 Tablet 2 10/29/2023 8:51 AM CDT 4 Active amLODIPine (NORVASC) 5 mg tablet Take 1 tablet (5 mg total) by mouth daily 90 Tablet 3 02/22/2024 5:43 PM COAL BAGGER 4 Active oxyCODONE-aceta minophen (PERCOCET) 5-325 mg tablet Take 1 tablet by mouth 4 (four) times a day as needed for pain 120 Tablet 08/15/2023 12:23 PM CDT 4 Active oxyCODONE-aceta minophen (PERCOCET) 5-325 mg tablet Take 1 tablet by mouth 4 (four) times a day as needed for pain 120 Tablet 06/16/2023 9:24 AM CDT 4 Active oxyCODONE-aceta minophen (PERCOCET) 5-325 mg tablet Take 1 tablet by mouth 4 (four) times a day as needed for pain 120 Tablet 07/16/2023 10:07 AM CDT 4 Active metoprolol tartrate (LOPRESSOR) 50 mg tablet Take 1 Tablet (50 mg) by mouth 2 times daily. 180 Tablet 2 09/02/2023 11:43 AM CDT 4 Active oxyCODONE-aceta minophen (PERCOCET) 5-325 mg tablet Take 1 tablet by mouth every 4 (four) hours as needed for pain (11/13/2023) 120 Tablet 11/13/2023 2:07 PM CDT 4 Active oxyCODONE-aceta minophen (PERCOCET) 5-325 mg tablet Take 1 tablet by mouth every 4 (four) hours as needed for pain 120 Tablet 10/14/2023 11:51 AM CDT 4 Active oxyCODONE-aceta minophen (PERCOCET) 5-325 mg tablet Take 1 tablet by mouth 4 (four) times a day as needed for pain 120 Tablet 09/14/2023 10:35 AM CDT 4 Active albuterol sulfate HFA 90 mcg/actuation aerosol inhaler Administer 2 puffs by mouth every 4 hours as needed for shortness of breath or wheezing. 6.7 Gram 2 03/08/2024 8:52 AM [facility] 4 Active pantoprazole (PROTONIX) 40 mg Tablet, Delayed Release (E.C.) Take 1 tablet (40 mg total) by mouth daily 30 Tablet 11 01/30/2024 12:57 PM [facility] 4 Active losartan (COZAAR) 100 mg tablet Take 1 Tablet (100 mg) by mouth daily. 90 Tablet 2 03/08/2024 8:52 AM [facility] 4 Active oxyCODONE-aceta minophen (PERCOCET) 5-325 mg tablet Take 1 tablet by mouth every 4 (four) hours as needed for pain. (02/11/24) 120 Tablet 02/11/2024 9:03 AM COAL BAGGER 4 Active oxyCODONE-aceta minophen (PERCOCET) 5-325 mg tablet Take 1 tablet by mouth 4 (four) times a day as needed for pain. 120 Tablet 12/13/2023 9:46 AM CDT 4 Active oxyCODONE-aceta minophen (PERCOCET) 5-325 mg tablet Take 1 tablet by mouth every 4 (four) hours as needed for pain. 120 Tablet 01/12/2024 10:09 AM COAL BAGGER 4 Active atorvastatin (LIPITOR) 40 mg tablet Take 1 Tablet (40 mg) by mouth daily at bedtime. 90 Tablet 2 01/06/2024 8:58 AM COAL BAGGER 4 Active ofloxacin (FLOXIN) 0.3 % Drops Instill 10 drops into each ear daily for 7 days 5 mL 01/25/2024 10:02 AM COAL BAGGER 4 Active fenofibrate (LOFIBRA) 160 mg Tablet Take 1 Tablet (160 mg) by mouth daily to lower triglycerides. 90 Tablet 2 01/30/2024 12:57 PM COAL BAGGER 4 Active oxyCODONE-aceta minophen (PERCOCET) 5-325 mg tablet Take 1 tablet by mouth 4 (four) times a day as needed for pain 120 Tablet 5 Active oxyCODONE-aceta minophen (PERCOCET) 5-325 mg tablet Take 1 tablet by mouth every 4 (four) hours as needed for pain 120 Tablet 5 Active oxyCODONE-aceta minophen (PERCOCET) 5-325 mg tablet Take 1 tablet by mouth 4 (four) times a day as needed for pain 120 Tablet 03/12/2024 10:42 AM COAL BAGGER 5 Active Social History Tobacco Use Types Packs/Day Years Used Date Smoking Tobacco: Never Assessed Sex and Gender Information Value Date Recorded Sex Assigned at Not on file Legal Sex Male 9:39 PM CDT Gender Identity Not on file Sexual Orientation Not on file Plan of Treatment Health Maintenance Due Date Last Done Comments DTAP/TDAP/TD VACCINES (1 - Tdap) 1990 HEPATITIS B VACCINES (1 of 3 - 19+ 3-dose series) 1990 COLORECTAL SCREENING 2016 Colorectal Cancer Screening 2016 FIT-DNA Q 3 years 2016 FIT/FOBT Q 1 year 2016 Flex Sig/CT Colonography Q 5 years 2016 ZOSTER VACCINE (1 of 2) 2021 INFLUENZA VACCINE (#1) 2023 PNEUMOCOCCAL VACCINE 0-64 YEARS Aged Out No longer eligible based on patient's age to complete this topic Insurance [employer] (INTERNAL) [facility] [employer]
--- OUTSIDE RECORDS SUMMARY | 2024-03-14 07:54 | XMS_ITS | Referral Summary ---
Author Organization [facility] Address [address] [place] [address] Care Team Providers Care Foreign Car Mechanic Name Role Phone Maria White RN Unavailable Unavailab Marina Reeves RN Unavailable Un available Lamine Lane MD Primary Care Provider [phone] Encounters Date Type Department Care Team Description 02/29/2024 9:43 AM SHUTTLE SPOTTER - 02/29/2024 11:59 PM SHUTTLE SPOTTER Hospital Encounter [facility] [address] [facility][Note 3] 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); Lumbar radiculopathy; Left hip pain Discharge Disposition: Discharge to home or self care from Last 3 Months Allergies Active Allergy Reactions Criticality Noted Date Comments Iodine And Iodide Containing Products Medications fenofibrate (TRIGLIDE) 160 mg tablet fenofibrate 160 mg tablet Active losartan (COZAAR) 50 mg tablet losartan 50 mg tablet Active metoprolol (LOPRESSOR) 50 mg tablet metoprolol tartrate 50 mg tablet Active albuterol HFA (PROVENTIL HFA,VENTOLIN HFA,PROAIR HFA) 90 mcg/actuation inhaler ProAir HFA 90 mcg/actuation aerosol inhaler INHALE 2 PUFF(S) EVERY 4 HOURS BY MOUTH Active aspirin 81 mg tablet Take 1 tablet (81 mg total) by mouth daily Active atorvastatin (LIPITOR) 40 mg tablet 2 Active naloxone (NARCAN) 4 mg/actuation spray,non-aeros olIndications:O piate-Induced Respiratory Depression,Opio id Toxicity Administer 1 spray into affected nostril(s) as needed for opioid reversal or respiratory depression 1 each 3 Active Additional Information Patient not taking.Reported on 03/26/2023 amLODIPine (NORVASC) 5 mg tabletIndicatio ns:hypertension Take 1 tablet (5 mg total) by mouth daily 90 tablet 3 4 Active oxyCODONE-aceta minophen (PERCOCET) 5-325 mg per tabletIndicatio ns:Pain Take 1 tablet by mouth 4 (four) times a day as needed for pain 120 [address] (PROTONIX) 40 mg EC tablet Take 1 tablet (40 mg total) by mouth daily 30 tablet 11 4 025 Active oxyCODONE-aceta minophen (PERCOCET) 5-325 mg per tabletIndicatio ns:Pain Take 1 tablet by mouth 4 (four) times a day as needed for pain 120 tablet 4 Active oxyCODONE-aceta minophen (PERCOCET) 5-325 mg per tabletIndicatio ns:Pain Take 1 tablet by mouth every 4 (four) hours as needed for pain 120 tablet 4 Active oxyCODONE-aceta minophen (PERCOCET) 5-325 mg per tabletIndicatio ns:Pain Take 1 tablet by mouth 4 (four) times a day as needed for pain 120 tablet 5 025 Active oxyCODONE-aceta minophen (PERCOCET) 5-325 mg per tabletIndicatio ns:Pain Take 1 tablet by mouth every 4 (four) hours as needed for pain 120 tablet 5 025 Active oxyCODONE-aceta minophen (PERCOCET) 5-325 mg per tabletIndicatio ns:Pain Take 1 tablet by mouth 4 (four) times a day as needed for pain 120 tablet 5 025 Active oxyCODONE-aceta minophen (PERCOCET) 5-325 mg per tabletIndicatio ns:Pain Take 1 tablet by mouth 4 (four) times a day as needed for pain 120 tablet 4 025 Discontin ued(Reord er) oxyCODONE-aceta minophen (PERCOCET) 5-325 mg per tabletIndicatio ns:Pain Take 1 tablet by mouth every 4 (four) hours as needed for pain 120 tablet 4 025 Discontin ued(Reord er) Active Problems Problem Noted Date Diagnosed Date Gastroesophageal reflux disease 09/24/2023 Hypertension 03/26/2023 History of percutaneous coronary intervention Hyperlipidemia 03/26/2023 PVC (premature ventricular contraction) 03/26/19 24 Left hip pain 10/29/2020 DDD (degenerative disc disease), lumbar 10/17/19 Sacroiliitis 10/17/2019 Lumbar radiculopathy 05/08/2019 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/15 Chronic bilateral low back pain without sciatica 02/02/2018 Lumbar post-laminectomy synd mark Rt L3,L4,L5 pedicle screws with a praveen and disc spacers 11/09/2017 Coronary artery disease invo lving [place] coronary artery of [place] heart without angina pectoris 12/12/2013 Overview (05/22/2016): Coronary arteriosclerosis in [place] artery Social History Tobacco Use Types Packs/Day Years Used Date Smoking Tobacco: Former Cigarettes Q uit: 2011 Smokeless Tobacco: Current Tobacco Cessation:Ready to Q uit: Not Asked; Counseling Given: Not Answered Alcohol Use Standard Drinks/Week Comments No 0 (1 standard drink = 0.6 oz pur e alcohol) recovered alcoholic since 2011 PHQ-2 Answer Date Recorded PHQ-2 Total Score (If total score is 3 or more points, staff should administer the PHQ-9) 0 02/29/2024 Sex and Gender Information Value Date Recorded Sex Assigned at Not on file Legal Sex Male 2:06 AM SHUTTLE SPOTTER Gender Identity Not on file Sexual Orientation Not on file Last Filed Vital Signs Vital Sign Reading Time Taken Comments Blood Pressure 140/64 02/29/2024 10:05 AM SHUTTLE SPOTTER Pulse 59 02/29/2024 10:05 AM SHUTTLE SPOTTER Temperature 36.8 ??C (98.3 ??F) 04/23/2020 3:33 PM CS T Respiratory Rate 16 02/29/2024 10:0 5 AM SHUTTLE SPOTTER Oxygen Saturation 97% 02/29/2024 10: 05 AM SHUTTLE SPOTTER Inhaled Oxygen Concentration - - Weight 100.6 kg (221 lb 11.2 oz) 09/24/2023 9:51 AM CDT Height 180.3 cm (5' 11 ) 09/24/2023 9:51 AM CDT Body Mass Index 30.92 09/24/2023 9:51 AM CDT Plan of Treatment Not on file Goals Goal Patient Goal Type Associated Problems Recent Progress Patient-Stated? Author [facility]-Pain Behavioral Health On track( 024 12:29 PM CDT) No Maya Guy RN Note: Patient will establish a comfort-function goal and identify the pain level that will allow the patient to perform desired activities and achieve an acceptable quality of life. Insurance [employer] [place] [employer] [place] Member Subscriber Plan / Payer (Ef fective 2021-Present) Name:Job Walker Relation to Subscriber:Self Name:Job Walker Payer ID:[id number] (NAIC) Type: ALLIANCE Address: [address] [place] [id number] [facility] CHOICE PLUS BLUE ACCESS [place] BLUE ACCESS OOS [facility] Address: [address] [place] [address] [employer] Address: [address] [place] [address] [employer] Address: [facility] [address] [place] [address] MEDICARE Care Teams Foreign Car Mechanic Relationship Specialty Start Date End Date Lamine Lane MD PCP - General Family Medicine 04/25/21 Maria White, RN Registered Nurse Pain Management 02/09/17 Marina Cantu, PRATIBHA Registered Nurse 05/06/17
--- OUTSIDE RECORDS SUMMARY | 2024-03-14 07:54 | XMS_ITS | CONTINUITY OF CARE DOCUMENT ---
Author Name jared coleman Address Unknown Organization [facility] Address [address] [place] [address] [address] [place] [address] Phone [phone] Care Team Providers Care Adhesive Primer Name Role Phone Andrew HUMMEL, Loco Unavailable [phone] INSURANCE PROVIDERS Payer name Policy type / Coverage type [facility] ID HEALTHCARE AND FAMILY SERVICES Medicaid 1 [id number]
--- OUTSIDE RECORDS SUMMARY | 2024-03-14 07:54 | XMS_ITS | Clinical Summary ---
Author Organization [facility] Address [address] [place] [address] Care Team Providers Care Skip Miner Name Role Phone Maria White RN Unavailable Unavailab Marina Reeves RN Unavailable Un available Lamine Lane MD Primary Care Provider [phone] Allergies Active Allergy Reactions Criticality Noted Date [...] 10/29/2020 DDD (degenerative disc disease), lumbar 10/17/19 20 Sacroiliitis 10/17/2019 Lumbar radiculopathy 05/08/2019 long-term (current) use of opiate analgesic 01/15 Chronic bilateral low back pain without sciatica 02/02/2018 Lumbar post-laminectomy synd mark Rt L3,L4,L5 pedicle screws with a praveen and disc spacers 11/09/2017 Coronary artery disease invo lving [place] coronary artery of [place] heart without angina pectoris 12/12/2013 Overview (05/22/2016): Coronary arteriosclerosis in [place] artery Encounters Date Type Department Care Team Description 02/29/2024 9:43 AM OUTPATIENT PSYCHIATRIST - 02/29/2024 11:59 PM OUTPATIENT PSYCHIATRIST Hospital Encounter [facility] [address] [place] [address], [address] [address] Sonal Callahan NP long-term (current) use of opiate analgesic (Primary Dx); Lumbar radiculopathy; Left hip pain Discharge Disposition: Discharge to home or self care from Last 3 Months Surgical History Surgery Date Site/Laterality Comments LAMINECTOMY Laminectomy CARDIAC STENT PLACEMENT 2010 and 2011 2 stents Medical History Medical History Date Comments Hx Other Medical Depression, wit h Anxiety Hx Other Medical Back Pain Myocardial infarction (HCC) Coronary artery disease Asthma due to seasonal allergies Hypertension pcp treating htn Chronic pain disorder Low back pain Diabetes mellitus (HCC) Family History Medical History Relation Name Comments Coronary artery disease Mother 2 Sherwin nary Artery Disease; Relation Name Status Comments Mother 1 Alive Mother 2 Social History Tobacco Use Types Packs/Day Years [...] on file Legal Sex Male 2:06 AM OUTPATIENT PSYCHIATRIST Gender Identity Not on file Sexual Orientation Not on file Obstetrics History Last Filed Vital Signs Vital Sign Reading Time Taken Comments Blood Pressure 140/64 02/29/2024 10:05 AM OUTPATIENT PSYCHIATRIST Pulse 59 02/29/2024 10:05 AM OUTPATIENT PSYCHIATRIST Temperature 36.8 ??C (98.3 ??F) 04/23/2020 3:33 PM CS T Respiratory Rate 16 02/29/2024 10:0 5 AM OUTPATIENT PSYCHIATRIST Oxygen Saturation 97% 02/29/2024 10: 05 AM OUTPATIENT PSYCHIATRIST Inhaled Oxygen Concentration - - Weight 100.6 kg (221 lb 11.2 oz) 09/24/2023 9:51 AM CDT Height 180.3 cm (5' 11 ) 09/24/2023 9:51 AM CDT Body Mass Index 30.92 09/24/2023 9:51 AM CDT Plan of Treatment Health Maintenance Due Date Last Done Comments Colon Cancer Screening-Colonoscopy 1971 Hepatitis C Screening 1971 Prostate Cancer Screening-PSA 1971 DTaP/Tdap/Td Vaccine (1 - Tdap) 1982 Hepatitis B Screening 1989 Regular Well Visit/Exam 18-64 1989 Zoster Vaccine (1 of 2) 2021 Influenza Vaccine (#1) 2023 9, 11/22/2017, 02/03/2012 Depression Screening 02/28/2025 02/29/2024, 02/29/2024, 12/02/2023, Additional history exists Pneumococcal vaccine <65 Aged Out No longer eligible based on patient's age to complete this topic Goals Goal Patient Goal Type Associated Problems Recent Progress Patient-Stated? Author BH-Pain Behavioral Health On track( 024 12:29 PM CDT) No Maya Guy, RN Note: Patient will establish a comfort-function goal and identify the pain level that will allow the patient to perform desired activities and achieve an acceptable quality of life. Insurance [place]UE [employer] [place] BLUE [employer] [facility]OS [facility] CHOICE PLUS [facility] HMO/PPO Address: [address] [address] [place] [address] BLUE [place]ide[place] BLUE [facility] OOS CIGNA [facility] [place] [address] Care Teams Skip Miner Relationship Specialty Start Date End Date Lamine Lnae MD PCP - General Family Medicine 04/25/21 Maria White, RN Registered Nurse Pain Management 02/09/17 Marina Cantu, RN Registered Nurse 05/06/17
--- OUTSIDE RECORDS SUMMARY | 2024-03-14 07:54 | XMS_ITS | Encounter Summary ---
Author Organization [facility] Address [address] [place] [address]. [place], [place] [id number] [place] [address] Care Team Providers Care Commercial Lending Relationship Manager Name Role Phone Unavailable Primary Care Provider Unavailabl e Encounter Details Date Type Department Care Team (Latest Contact Info) Description 12/21/2017 Abstract [facility] , Sharron Murillo MD Social History Tobacco Use Types Packs/Day Years Used Date Smoking Tobacco: Never Assessed Sex and Gender Information Value Date Recorded Sex Assigned at Not on file Legal Sex Male 4:52 PM CDT Gender Identity Not on file Sexual Orientation Not on file documented as of this encounter Plan of Treatment Not on file documented as of this encounter Visit Diagnoses Not on filedocumented in this encounter
--- OUTSIDE RECORDS SUMMARY | 2024-03-14 07:54 | XMS_ITS | Clinical Summary ---
Author Organization [facility] Address [address] [place] [address]. [place], [place] [address] [place] [address] Care Team Providers Care Materials Specialist Name Role Phone Unavailable Primary Care Provider Unavailabl e Social History Tobacco Use Types Packs/Day Years Used Date Smoking Tobacco: Never Assessed Sex and Gender Information Value Date Recorded Sex Assigned at Not on file Legal Sex Male 4:52 PM CDT Gender Identity Not on file Sexual Orientation Not on file Last Filed Vital Signs Vital Sign Reading Time Taken Comments Blood Pressure 140/80 10/19/2013 10:47 AM CDT Pulse 72 10/19/2013 10:47 AM CDT Temperature - - Respiratory Rate - - Oxygen Saturation - - Inhaled Oxygen Concentration - - Weight 102.1 kg (225 lb) 10/19/2013 10:47 AM CDT Height 180.3 cm (5' 11 ) 10/19/2013 10:47 AM CDT Body Mass Index 31.38 10/19/2013 10:47 AM CDT Plan of Treatment Health Maintenance Due Date Last Done Comments Colorectal Cancer Screening Colonoscopy (10 Years) 1971 Annual Physical 1974 Hepatitis C 1989 DTaP, Tdap and Td Vaccines ( 1 - Tdap) 1990 Hepatitis B Vaccines (1 of 3 - 19+ 3-dose series) 1990 Zoster Vaccines (1 of 2) 2021 COVID-19 Vaccine ( - 2023-2 5 season) 2023 Influenza Adult (#1) 2023 Meningococcal B Vaccine Aged Out No l onger eligible based on patient's age to complete this topic Meningococcal Vaccine Aged Out No jhonathan desiree eligible based on patient's age to complete this topic Pneumococcal Vaccine: Pediat rics (0 to 5 Years) and At-Risk Patients (6 to 64 Years) Aged Out No longer eligible b ased on patient's age to complete this topic RSV Immunizations Under 20 Months Aged Out No longer eligible based on patient's age to complete this topic
== END 2024-03-14 07:46 | disposition home or self-care (01) ==
PROVIDERS: PCP Family Medicine; Visit Provider Orthopaedic Surgery
DX: M16.12 Unilateral primary osteoarthritis, left hip (principal); M25.552 Pain in left hip; Z96.698 Presence of other orthopedic joint implants
CPT/HCPCS: 73502

== ENCOUNTER 2024-04-12 08:50 | Outpatient (CLI) | payer OTHER, MEDICARE, SELFPAY ==
--- NOTE | ~2024-04-12 | XR_ITS ---
EXAMINATION: XR lg joint inject/asp w image DATE: 04/12/2024 09:50 INDICATION: Left hip arthritis with pain TECHNIQUE: A time-out was performed to verify the patient's name, date of , and procedure to b e performed. The procedure including the risks, benefits, and alternatives was discussed with the pat ient. Risks discussed included bleeding, allergic reaction and and infection. The patient understood the risks and agreed to proceed. The skin overlying the left hip joint was prepped and draped in usu al sterile fashion. Anesthetic was administered with 1% lidocaine subcutaneously. A 22 G needle was advanced under fluoroscopic guidance into the joint. The patient has history of prior contrast react ion with seizures following a myelogram and therefore a small amount of room air was injected to conf irmed intra-articular position of the needle. Subsequently, injectate consisting of 3 mm of a 2:1 mi xture of 0.5% bupivacaine:80 mg/mL Depo-Medrol for a total dose of 80 mg Depo-Medrol was instilled. T he needle was removed and the entry site was cleaned and dressed. There were no immediate complicati ons. Fluoroscopy exposure time was 0.1 minutes. The total number of images was 1. Total DAP was 0.5 G ycm^2. FINDINGS: Real-time fluoroscopy demonstrates the needle and lucent gas in the left hip joint. Patient 's pain prior to procedure:3/10. Patient's pain following the procedure: 0/10. IMPRESSION: 1. Successful left hip joint injection of local anesthetic and steroid with decrease in the patient's presenting pain. Reviewed, dictated and finalized at location B. CONSULTANT IMPRESSION: 1. Successful left hip joint injection of local anesthetic and steroid with dec rease in the patient's presenting pain.
--- OUTSIDE RECORDS SUMMARY | 2024-04-12 09:20 | XMS_ITS | Clinical Summary ---
Author Organization [facility] Address [address] [place] [address] Care Team Providers Care Support Representative Name Role Phone Maria White RN Unavailable Unavailab Marina Reeves RN Unavailable Un available Lamine Lane MD Primary Care Provider [phone] Allergies Active Allergy Reactions Criticality Noted Date [...] tablet 2 Active naloxone (NARCAN) 4 mg/actuation spray,non-aeroso lIndications:Opi ate-Induced Respiratory Depression,Opioi d Toxicity Administer 1 spray into affected nostril(s) as needed for opioid reversal or respiratory depression 1 each 3 Active Additional Information Patient not taking.Reported on 03/26/2023 amLODIPine (NORVASC) 5 mg tabletIndication s:hypertension Take 1 tablet (5 mg total) by mouth daily 90 tablet 3 4 Active oxyCODONE-acetam inophen (PERCOCET) 5-325 mg per tabletIndication s:Pain Take 1 tablet by mouth 4 (four) times a day as needed for pain 120 tablet [address] (PROTONIX) 40 mg EC tablet Take 1 tablet (40 mg total) by mouth daily 30 tablet 11 4 09/24/19 25 Active oxyCODONE-acetam inophen (PERCOCET) 5-325 mg per tabletIndication s:Pain Take 1 tablet by mouth 4 (four) times a day as needed for pain 120 tablet 4 Active oxyCODONE-acetam inophen (PERCOCET) 5-325 mg per tabletIndication s:Pain Take 1 tablet by mouth every 4 (four) hours as needed for pain 120 tablet 4 Active oxyCODONE-acetam inophen (PERCOCET) 5-325 mg per tabletIndication s:Pain Take 1 tablet by mouth 4 (four) times a day as needed for pain 120 tablet 5 Active oxyCODONE-acetam inophen (PERCOCET) 5-325 mg per tabletIndication s:Pain Take 1 tablet by mouth every 4 (four) hours as needed for pain 120 tablet 5 05/12/19 25 Active oxyCODONE-acetam inophen (PERCOCET) 5-325 mg per tabletIndication s:Pain Take 1 tablet by mouth 4 (four) times a day as needed for pain 120 tablet 5 06/11/19 25 Active Active Problems Problem Noted Date Diagnosed Date Gastroesophageal reflux disease 09/24/2023 Hypertension 03/26/2023 History of percutaneous coronary intervention Hyperlipidemia 03/26/2023 PVC (premature ventricular contraction) 03/26/19 24 Left hip pain 10/29/2020 DDD (degenerative disc disease), lumbar 10/17/19 20 Sacroiliitis 10/17/2019 Lumbar 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 (Primary Dx); [...] Date Smoking Tobacco: Former Cigarettes Q uit: 2012 Smokeless Tobacco: Current Tobacco Cessation:Ready to Q [...] on file Legal Sex Male 2:06 AM NEWSPAPER WRITER Gender Identity Not on file Sexual Orientation Not on file Obstetrics History Last Filed Vital Signs Vital Sign Reading Time Taken Comments Blood Pressure 140/64 02/29/2024 10:05 AM NEWSPAPER WRITER Pulse 59 02/29/2024 10:05 AM NEWSPAPER WRITER Temperature 36.8 C (98.3 F) 04/23/2020 3:33 PM NEWSPAPER WRITER Respiratory Rate 16 02/29/2024 10:0 5 AM NEWSPAPER WRITER Oxygen Saturation 97% 02/29/2024 10: 05 AM NEWSPAPER WRITER Inhaled Oxygen Concentration - - Weight 100.6 [...] achieve an acceptable quality of life. Insurance FORMERLY [facility] MaPS ACCESS OOS [facility] CHOICE PLUS [place] ACCESS OOS [employer] [facility] [place] Address: [facility] [address] [place] [address] FOR[facility]LY [facility] HEALTH [facility] [place] Address: [facility] [address] [place] [address] MEDICARE Care Teams Support Representative Relationship Specialty Start Date End Date Lamine Lane MD PCP - General Family Medicine 04/25/21 Maria White, RN Registered Nurse Pain Management 02/09/17 Marina Cantu, RN Registered Nurse 05/06/17
--- OUTSIDE RECORDS SUMMARY | 2024-04-12 09:20 | XMS_ITS | CONTINUITY OF CARE DOCUMENT ---
Author Name jared coleman Address Unknown Organization [facility] Address [address] [place] [address] [address] [place] [address] Phone [phone] Care Team Providers Care Adaptive Physical Education Specialist Name Role Phone Andrew HUMMEL, Loco Unavailable INSURANCE PROVIDERS Payer name Policy type / Coverage type [facility] ID HEALTHCARE AND FAMILY SERVICES Medicaid 1 [id number]
--- OUTSIDE RECORDS SUMMARY | 2024-04-12 09:20 | XMS_ITS | Clinical Summary ---
Author Organization [facility] Address [address] [place] [address] Care Team Providers Care Airplane And Engine Inspector Name Role Phone Unavailable Primary Care Provider [...] Vaccines (1 of 2) 2021 COVID-19 Vaccine (2023-2 5 season) 2023 Influenza Adult (#1) 2023 [...]
--- OUTSIDE RECORDS SUMMARY | 2024-04-12 09:20 | XMS_ITS | Encounter Summary ---
Author Organization [facility] Address [address] [place] [address] Care Team Providers Care Rolled Glass Crosscutter Name Role Phone Unavailable Primary Care Provider Unavailabl e Encounter Details Date Type Department Care Team (Latest Contact Info) Description 12/21/2017 Abstract [facility] , Generic Conversion, Social History Tobacco Use Types Packs/Day Years [...]
--- OUTSIDE RECORDS SUMMARY | 2024-04-12 09:20 | XMS_ITS | Data Portability ---
Author Organization [facility] Address [address] [place] [address] Assessment No assessment recorded. Plan of Treatment Reminders Order Date Submit Date Provider Last Modified By Organization Details Last Modified Time Details Appointments None recorded. Lab PSA, serum or plasma 2017 018 [facility], [facility] [address], [place], [address], 8 08:21:52 unlisted lab - CMP12+2AC 2017 018 [facility], [facility] [facility] [place] [address], [place], [address], 8 08:21:50 lipid panel, serum 2017 018 [facility], [address] [facility] [address], [address], [place], [address], 8 08:21:51 CBC 2017 018 [facility], [address] [place], [place] [address], [address], [place], [address], 8 08:21:51 TSH + free T4, serum 2017 018 [facility], [address] [facility] [address], [address], [place], [address], 8 08:21:50 Referral None recorded. Procedures None [...] uIU/m L 0.450- 4.500 Not Available [facility] ([facility]) [address] [place], [address], 02/24/2017 08:21:50 02/23/19 18 02/24/2017 TSH + free T4, serum T4,free(dire ct) 1.06 NG/dL 0.82-1 .77 Not Available [facility] ([facility]) [address] [place], [address], 02/24/2017 08:21:50 02/23/19 18 02/24/2017 CMP12 +2AC glucose, serum 102 mg/dL 65-99 above high normal Not Available [facility] ([facility]) [address] [place], [address], 02/24/2017 08:21:50 02/23/1902/24/2017 CMP12 +2AC uric acid, serum 6.2 mg/dL 3.7-8. 6 Thera maurice santoyo t for gout patie nts: <6.0 Not Available [facility] ([facility]) [address] [place], [address], 02/24/2017 08:21:50 02/23/19 18 02/24/2017 CMP12 +2AC BUN 16 mg/dL 6-24 Not Available [facility] ([facility]) [address] [place], [address], 02/24/2017 08:21:50 02/23/19 18 02/24/2017 CMP12 +2AC creatinine, serum 0.93 mg/dL 0.76-1 .27 Not Available [facility] ([facility]) [address] [facility], [place], [address], 02/24/2017 08:21:50 02/23/19 18 02/24/2017 CMP12 +2AC eGFR if nonafricn AM 99 mL/mi n/1.7 3 >59 Not Available [facility] ([facility]) [address] [facility] [place], [address], 02/24/2017 08:21:50 02/23/19 18 02/24/2017 CMP12 +2AC eGFR if africn AM 114 mL/mi n/1.7 3 >59 Not Available [facility] ([facility]) [address] [facility], [place], [address], 02/24/2017 08:21:50 02/23/19 18 02/24/2017 CMP12 +2AC BUN/creatini ne ratio 17 9-20 Not Available [facility] ([facility]) [address] [place], [address], 02/24/2017 08:21:50 02/23/19 18 02/24/2017 CMP12 +2AC sodium, serum 143 mmol/ L 134-14 4 Not Available [facility] ([facility]) [address] [place], [address], 02/24/2017 08:21:50 02/23/19 18 02/24/2017 CMP12 +2AC potassium, serum 3.8 mmol/ L 3.5-5. 2 Not Available [facility] ([facility]) [address] [place], [address], 02/24/2017 08:21:50 02/23/19 18 02/24/2017 CMP12 +2AC chloride, serum 102 mmol/ L 96-106 Not Available [facility] ([facility]) [address] [facility] [place], [address], 02/24/2017 08:21:50 02/23/19 18 02/24/2017 CMP12 +2AC calcium, serum 9.5 mg/dL 8.7-10 .2 Not Available [facility] ([facility]) [address] [facility] [place], [address], 02/24/2017 08:21:50 02/23/1902/24/2017 CMP12 +2AC protein, total, serum 6.8 g/dL 6.0-8. 5 Not Available [facility] ([facility]) [address] [facility] [place], [address], 02/24/2017 08:21:50 02/23/19 18 02/24/2017 CMP12 +2AC albumin, serum 4.4 g/dL 3.5-5. 5 Not Available [facility] ([facility]) [address] [facility] [place], [address], 02/24/2017 08:21:50 02/23/1902/24/2017 CMP12 +2AC globulin, total 2.4 g/dL 1.5-4. 5 Not Available [facility] ([facility]) [address] [facility] [place], [address], 02/24/2017 08:21:50 02/23/19 18 02/24/2017 CMP12 +2AC A/G ratio 1.8 1.2-2. 2 Not Available [facility] ([facility]) [address] [facility] [place], [address], 02/24/2017 08:21:50 02/23/1902/24/2017 CMP12 +2AC bilirubin, total 0.5 mg/dL 0.0-1. 2 Not Available [facility] ([facility]) [address] [facility] [place], [address], 02/24/2017 08:21:50 02/23/19 18 02/24/2017 CMP12 +2AC alkaline phosphatase, S 44 IU/L 39-117 Not Available [facility] ([facility]) [address] [place], [address], 02/24/2017 08:21:50 02/23/19 18 02/24/2017 CMP12 +2AC AST (SGOT) 23 IU/L 0-40 Not Available [facility] ([facility]) [address] [place], [address], 02/24/2017 08:21:50 02/23/19 18 02/24/2017 CMP12 +2AC ALT (SGPT) 26 IU/L 0-44 Not Available [facility] ([facility]) [address] [place], [address], 02/24/2017 08:21:50 02/23/19 18 02/24/2017 CBC WBC 8.0 x10e3 /uL 3.4-10 .8 Not Available [facility] ([facility]) [address] [place], [address], 02/24/2017 08:21:51 02/23/19 18 02/24/2017 CBC RBC 4.47 x10e6 /uL 4.14-5 .80 Not Available [facility] ([facility]) [address] [facility] [place], [address], 02/24/2017 08:21:51 02/23/1902/24/2017 CBC hemoglobin 12.4 g/dL 13.0-1 7.7 below low normal Not Available [facility] ([facility]) [address] [facility] [place], [address], 02/24/2017 08:21:51 02/23/19 18 02/24/2017 CBC hematocrit 37.2 % 37.5-5 1.0 below low normal Not Available [facility] ([facility]) [address] [facility] [place], [address], 02/24/2017 08:21:51 02/23/19 18 02/24/2017 CBC MCV 83 fL 79-97 Not Available [facility] ([facility]) [address], [place], [address], 02/24/2017 08:21:51 02/23/19 18 02/24/2017 CBC MCH 27.7 pg 26.6-3 3.0 Not Available [facility] ([facility]) [address], [place], [address], 02/24/2017 08:21:51 02/23/19 18 02/24/2017 CBC MCHC 33.3 g/dL 31.5-3 5.7 Not Available [facility] ([facility]) [address], [place], [address], 02/24/2017 08:21:51 02/23/19 18 02/24/2017 CBC RDW 12.9 % 12.3-1 5.4 Not Available [facility] ([facility]) [address], [place], [address], 02/24/2017 08:21:51 02/23/19 18 02/24/2017 CBC platelets 222 x10e3 /uL 150-37 9 Not Available [facility] ([facility]) [address], [place], [address], 02/24/2017 08:21:51 02/23/1902/24/2017 CBC NRBC ASSISTANT AT SURGERY Not Available [facility] ([facility]) [address], [address], 02/24/2017 08:21:51 02/23/19 18 02/24/2017 lipid panel , serum cholesterol, total 161 mg/dL 100-19 9 Not Available [facility] ([facility]) [address] [place], [address], 02/24/2017 08:21:51 02/23/19 18 02/24/2017 lipid panel , serum triglyceride s 151 mg/dL 0-149 above high normal Not Available [facility] ([facility]) [address] [facility] [place], [address], 02/24/2017 08:21:51 02/23/19 18 02/24/2017 lipid panel , serum HDL cholesterol 40 mg/dL >39 Not Available [facility] [address] [facility] [place], [address], 02/24/2017 08:21:51 02/23/19 18 02/24/2017 lipid panel , serum VLDL cholesterol jake 30 mg/dL 5-40 Not Available [facility] ([facility]) [address] [place], [address], 02/24/2017 08:21:51 02/23/1902/24/2017 lipid panel , serum LDL cholesterol calc 91 mg/dL 0-99 Not Available [facility] ([facility]) [address] [place], [address], 02/24/2017 08:21:51 02/23/1902/24/2017 lipid panel , serum comment: ASSISTANT AT SURGERY Not Available [facility] ([facility]) [address] [facility] [place], [address], 02/24/2017 08:21:51 02/23/1902/24/2017 lipid panel , serum T. chol/HDL ratio 4.0 ratio _unit s 0.0-5. 0 T. Chol/ HDL Ratio Men Women 1/2 Avg.R isk 3.4 3.3 Avg.R isk 5.0 4.4 2X Avg.R isk 9.6 7.1 3X Avg.R isk 23.4 11.0 Not Available [facility] ([facility]) [address] [facility], [place], [address], 02/24/2017 08:21:51 02/23/1902/24/2017 PSA, serum or plasm [...] t be inter prete d as absol morongo evide nce of the prese nce or absen ce of gaurang mcbride se. Not Available [facility] ([facility]) [address] [facility], [place], [address], 02/24/2017 08:21:52 Result Notes None recorded. Problems Name Problem SNOMED Code Status Onset Date Resolution Date Notes Provider Name and Address Organization Details Recorded Time History of placement of stent for coronary artery disease 503385027 Active 2017 012 Stephie Kaiser MD Attn: Accounting ,[address] [place], [address] , [facility] 8 15:29:59 Coronary arterioscl erosis in patient with history of previous myocardial infarction 6057204990490 06 Active 2017 Stephie Kaiser MD Attn: Accounting ,[address] [place], [address] , [facility] 8 15:30:52 Allergic rhinitis 23818557 Active 2017 Stephie Kaiser MD Attn: Accounting ,[address] [place], [address] , [facility] 8 15:31:34 Chews tobacco 26534552 Active 2017 Stephie Kaiser MD Attn: Accounting ,[address] [place], [address] , [place] [facility] 8 15:32:12 Dry skin 36164888 Active 2017 Stephie Kaiser MD Attn: Accounting ,[address] [facility], [place], [address] , [place] [facility] 8 15:32:35 History of cellulitis of skin 422678689 Active 2017 Stephie Kaiser MD Attn: Accounting ,[address] [facility], [place], [address] , [place] [facility] 8 15:34:27 Family history of diabetes mellitus 801593121 Active 2017 Stephie Kaiser MD Attn: Accounting ,[address] [facility], [place], [address] , [place] - [facility] 8 15:42:09 Screening for malignant neoplasm of prostate Active 2017 Stephie Kaiser MD Attn: Accounting ,[address] [facility], [place], [address] , [place] [facility] 8 15:44:39 Fatigue 38195103 Active 2017 Stephie Kaiser MD Attn: Accounting ,[address] [facility], [place], [address] , [place] [facility] 8 15:45:22 Hyperglyce tyrone 46041110 Active 2017 Stephie Kaiser MD Attn: Accounting ,[address] [facility], [place], [address] , [place] [facility] 8 18:32:47 Anemia 461878629 Active 2017 Stephie Kaiser MD Attn: Accounting ,[address] [facility], [place], [address] , [place] [facility] 8 18:33:05 Active or passive immunizati on Active 2016 Lorena Gaviria PA-C Attn: Accounting ,[address] [facility], [place], [address] , [place] [facility] 7 12:36:15 Problem Notes None recorded. Medical Equipment None Reported. Allergies Allergen ID Allergen Name Allergen Category Reaction Reaction Severity Criticality Documentation Date Start Date Code Code System Note Provider Name and Address Organization Details Recorded Time 020871 Iodinated contrast media (substanc e) medicatio n Not available Not available Not available 02/23/2017 23745 2004 SNOMED Not Available Not Available Not [...] propionate 50 mcg/actuatio n nasal spray,suspen wen [place] by intranasal route for 25 days. active [...] t Available Vitals Date Recorded Body height Body mass index (BMI) Body weight Body temperature Heart rate Oxygen saturation Oxygen saturation in Arterial blood by Pulse oximetry Systolic blood pressure Diastolic blood pressure Provider Name and Address Organization Details Last Updated DateTime 8 180.34 cm 28.8 kg/m2 35348.4 7 g 98.3 [degF] 68 /min 98 % 98 % 126 mm[Hg] 74 mm[Hg] Janett Roy [place] [facility] 8 15:01:49 Date Recorded Body height Body mass index (BMI) Body weight Respiratory rate Body temperature Oxygen saturation Oxygen saturation in Arterial blood by Pulse oximetry Systolic blood pressure Diastolic blood pressure Provider Name and Address Organization Details Last Updated DateTime 8 180.34 cm 28.9 kg/m2 60501.0 5 g 92 /min 97.7 [degF] 98 % 98 % 150 mm[Hg] 86 mm[Hg] Ibeth Finley MA [facility] 8 17:49:01 Date Recorded Body height Body weight Body mass index (BMI) Body temperature Systolic blood pressure Diastolic blood pressure Provider Name and Address Organization Details Last Updated DateTime 7 180.34 cm 03663.7 5 g 30.2 kg/m2 98.5 [degF] 120 mm[Hg] 80 mm[Hg] Ирина Obrien MA [facility] 7 12:28:07 Social History Question Answer Notes LastModified by Organizat ion Details LastModified Time Tobacco Smoking Status Former Smoker quit 6.5 yrs ago Janett Roy MA [facility] 02/23/2017 14:57:28 What Was The Date Of [...] Recorded Time MMR 06/06/2016 completed Not Available [facility] 03/04/2019 02:33:29 Past Encounters Encounter ID Performer Location Encounter Start Date Encounter Closed Date Diagnosis/Indication Diagnosis SNOMED-CT Code Diagnosis ICD10 Code Diagnosis Note [id number] Lorena Gaviria PA-C [facility] [address] [place] [address] 06/06/2016 12:05:56 06/08/2016 09:57:59 Active or passive immunization 525138610 Z23 [id number] MD Alethea Cobb (Adult Med) [address] [place] [address] 02/23/2017 14:17:56 02/23/2017 15:52:03 Allergic rhinitis 24029688 J30.9 Continue cetirizine History of cellulitis of skin 427052093 Z87.2 Coronary arteriosclerosis in patient with history of previous myocardial infarction 4925074567 11769 I25.2 History of placement of stent for coronary artery disease 832434102 Z95.5 Family his tory of diabetes mellitus 403128675 Z83.3 Screening for malignant neoplasm of prostate 693553012 Z12.5 Fatigue 09328965 R53.83 [id number] Stephie Kaiser MD [facility] (Adult Med) [address] [place] [address] 09/13/2017 15:57:52 09/14/2017 10:35:42 Anemia 973987034 D64.9 Hyperglycemia 53577218 R 73.9 History of placement of stent for coronary artery disease 374171101 Z95.5 Coronary arteriosclerosis in patient with history of previous myocardial infarction 3638073526 14763 I25.2 Health Concerns Section Related Observation LastModified by Organization Detai ls LastModified Time None Recorded Concern Status LastModified by Organization Details LastModified Time None Recorded Advance Directives Directive None Recorded Payers Encounter Date Sequence Insurance Name Policy Number Policy Rayo Covered Member ID Rayo Member ID Guarantor Name 06/06/2016 2 *SELF PAY* torito Hassan 02/23/2017 1 [facility] [id number] Job Hassan [id number] Job Hassan 02/23/2017 2 [place] [employer] Job Hassan [id number] Job Hassan 09/13/2017 1 [facility] [id number] Jbo Hassan [id number] Job Hassan 09/13/2017 2 [place] [facility] Job Hassan [id number] Job Hassan Notes Date Note Type Note Provider Name and Address Organization Details Recorded Time 06/06/2016 text/html Here for MMR #2 - had #1 placed 4 weeks ago Lorena Gaviria PA-C Attn: Accounting,[address] [place], [address], [facility] 06/06/2016 13:02:27 02/23/2017 text/html Some sinus drainage and frontal headache. Stephie Kaiser MD Attn: Accounting,[address] [place], [address], [facility] 02/23/2017 15:51:19 09/13/2017 text/html Here for a workplace physical. Not sure if he needs a TB skin test Stephie Kaiser MD Attn: Accounting,[address] [facility], [place], [address], [facility] 09/13/2017 18:36:38
--- OUTSIDE RECORDS SUMMARY | 2024-04-12 09:20 | XMS_ITS | Referral Summary ---
Author Organization [facility] Address [address] [place] [address] Care Team Providers Care Senior Qualitative Researcher Name Role Phone Maria White RN Unavailable Unavailab Marina Reeves RN Unavailable Un available Lamine Lane MD Primary Care Provider Encounters Date Type Department Care Team Description 02/29/2024 9:43 AM PUBLIC IMPROVEMENT INSPECTOR - 02/29/2024 11:59 PM PUBLIC IMPROVEMENT INSPECTOR Hospital Encounter [facility] [address] [facility] 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 [employer] (current) use of opiate analgesic 01/15 Chronic bilateral low back pain without sciatica 02/02/2018 Lumbar post-laminectomy synd mark Rt L3,L4,L5 pedicle screws with a praveen and disc spacers 11/09/2017 Coronary artery disease invo lving gambell coronary artery of gambell heart without angina pectoris 12/12/2013 Overview (05/22/2016): Coronary arteriosclerosis in gambell artery Social History Tobacco Use Types Packs/Day [...] on file Legal Sex Male 2:06 AM PUBLIC IMPROVEMENT INSPECTOR Gender Identity Not on file Sexual Orientation Not on file Last Filed Vital Signs Vital Sign Reading Time Taken Comments Blood Pressure 140/64 02/29/2024 10:05 AM PUBLIC IMPROVEMENT INSPECTOR Pulse 59 02/29/2024 10:05 AM PUBLIC IMPROVEMENT INSPECTOR Temperature 36.8 C (98.3 F) 04/23/2020 3:33 PM PUBLIC IMPROVEMENT INSPECTOR Respiratory Rate 16 02/29/2024 10:0 5 AM PUBLIC IMPROVEMENT INSPECTOR Oxygen Saturation 97% 02/29/2024 10: 05 AM PUBLIC IMPROVEMENT INSPECTOR Inhaled Oxygen Concentration - - Weight 100.6 [...] achieve an acceptable quality of life. [place] [facility]OS [facility] CHOICE PLUS BLUE [place] BLUE ACCESS [place]OS [employer] Address: [facility] [id number] [place] [address] [employer] Address: [address] [place] [address] MEDICARE Care Teams Senior Qualitative Researcher Relationship Specialty Start Date End Date Lamine Lane MD PCP - General Family Medicine 04/25/21 Maria White, RN Registered Nurse Pain Management 02/09/17 Marina Cantu, RN Registered Nurse 05/06/17
--- OUTSIDE RECORDS SUMMARY | 2024-04-12 09:20 | XMS_ITS | Clinical Summary ---
Author Organization [facility] Address [address] [facility] Attn: Epic Prelude ADT NATTY MURILLO [id number] Care Team Providers Care Manager R D Name Role Phone Unavailable Primary Care Provider Unavailabl e Allergies No known active allergies Medications atorvastatin (LIPITOR) 40 mg tablet Take 1 Tablet (40 mg) by mouth daily at bedtime. 90 Tablet 2 2022 12:27 PM ACCOUNT SUPERVISOR 2 Active fenofibrate (LOFIBRA) 160 mg Tablet Take 1 Tablet (160 mg) by mouth daily to lower triglycerides. 90 Tablet 2 2022 12:27 PM ACCOUNT SUPERVISOR 2 Active losartan (COZAAR) 100 mg tablet Take 1 Tablet (100 mg) by mouth daily. 90 Tablet 2 01/15/2022 8:50 AM ACCOUNT SUPERVISOR 2 Active metoprolol tartrate (LOPRESSOR) 50 mg tablet TAKE 1 AND 1/2 TABLETS BY MOUTH EVERY MORNING AND TAKE 1 TABLET EVERY EVENING 270 Tablet 2 2022 12:27 PM ACCOUNT SUPERVISOR 2 Active oxyCODONE-aceta minophen (PERCOCET) 5-325 mg [...] for pain 120 Tablet 01/22/2022 8:47 AM ACCOUNT SUPERVISOR 2 Active oxyCODONE-aceta minophen (PERCOCET) 5-325 mg tablet Take 1 Tablet by mouth 4 times daily as needed for pain. 120 Tablet 12/23/2021 9:02 AM ACCOUNT SUPERVISOR 2 Active atorvastatin (LIPITOR) 40 mg tablet [...] spasms 30 Tablet 1 02/21/2022 10:10 AM ACCOUNT SUPERVISOR 3 Active oxyCODONE-aceta minophen (PERCOCET) 5-325 mg tablet Take 1 tablet by mouth 4 (four) times a day as needed for pain 120 Tablet 02/21/2022 10:10 AM ACCOUNT SUPERVISOR 3 Active ALPRAZolam (XANAX) 0.5 mg tablet Take 1 Tablet (0.5 mg) by mouth 1 time daily as needed for anxiety. 30 Tablet 03/23/2022 9:41 AM ACCOUNT SUPERVISOR 3 Active oxyCODONE-aceta minophen (PERCOCET) 5-325 mg tablet Take 1 tablet by mouth 4 (four) times a day as needed for pain. 120 Tablet 03/23/2022 9:41 AM ACCOUNT SUPERVISOR 3 Active oxyCODONE-aceta minophen (PERCOCET) 5-325 mg tablet Take 1 tablet by mouth 4 (four) times a day as needed for pain. 120 Tablet 04/22/2022 9:06 AM ACCOUNT SUPERVISOR 3 Active oxyCODONE-aceta minophen (PERCOCET) 5-325 mg [...] daily. 90 Tablet 2 02/06/2023 10:18 AM ACCOUNT SUPERVISOR 3 Active naloxone (NARCAN) 4 mg/spray [place], Non-Aerosol Administer 1 spray into affected nostril(s) [...] pain. (01/17/23) 120 Tablet 01/17/2023 12:18 PM ACCOUNT SUPERVISOR 3 Active oxyCODONE-aceta minophen (PERCOCET) 5-325 mg tablet Take 1 Tablet by mouth 4 times daily as needed for pain. 120 Tablet 12/18/2022 8:50 AM CDT 3 Active oxyCODONE-aceta minophen (PERCOCET) 5-325 mg tablet Take 1 tablet by mouth 4 (four) times a day as needed for pain. 120 Tablet 03/18/2023 2:13 PM ACCOUNT SUPERVISOR 4 Active oxyCODONE-aceta minophen (PERCOCET) 5-325 mg tablet Take 1 tablet by mouth 4 (four) times a day as needed for pain. 120 Tablet 02/16/2023 10:21 AM ACCOUNT SUPERVISOR 4 Active oxyCODONE-aceta minophen (PERCOCET) 5-325 mg tablet Take 1 tablet by mouth 4 (four) times a day as needed for pain 120 Tablet 05/17/2023 1:06 PM CDT 4 Active oxyCODONE-aceta minophen (PERCOCET) 5-325 mg tablet Take 1 tablet by mouth 4 (four) times a day as needed for pain 120 Tablet 04/17/2023 9:19 AM ACCOUNT SUPERVISOR 4 Active fenofibrate (LOFIBRA) 160 mg Tablet Take 1 Tablet (160 mg) by mouth daily to lower triglycerides. 90 Tablet 2 10/29/2023 8:51 AM CDT 4 Active amLODIPine (NORVASC) 5 mg tablet Take 1 tablet (5 mg total) by mouth daily 90 Tablet 3 02/22/2024 5:43 PM ACCOUNT SUPERVISOR 4 Active oxyCODONE-aceta minophen (PERCOCET) 5-325 mg [...] mouth 2 times daily. 180 Tablet 2 03/22/2024 2:52 PM [facility] 4 Active oxyCODONE-aceta minophen (PERCOCET) 5-325 mg [...] for pain 120 Tablet 09/14/2023 10:35 AM T 4 Active albuterol sulfate HFA 90 mcg/actuation aerosol inhaler Administer 2 puffs by mouth every 4 hours as needed for shortness of breath or wheezing. 6.7 Gram 2 03/08/2024 8:52 AM [facility] 4 Active pantoprazole (PROTONIX) 40 mg Tablet, Delayed Release (E.C.) Take 1 tablet (40 mg total) by mouth daily 30 Tablet 11 01/30/2024 12:57 PM [facility] 4 Active losartan (COZAAR) 100 mg tablet Take 1 Tablet (100 mg) by mouth daily. 90 Tablet 2 03/08/2024 8:52 AM [facility] 4 Active oxyCODONE-aceta minophen (PERCOCET) 5-325 mg tablet Take 1 tablet by mouth every 4 (four) hours as needed for pain. (02/11/24) 120 Tablet 02/11/2024 9:03 AM ACCOUNT SUPERVISOR 4 Active oxyCODONE-aceta minophen (PERCOCET) 5-325 mg tablet Take 1 tablet by mouth 4 (four) times a day as needed for pain. 120 Tablet 12/13/2023 9:46 AM CDT 4 Active oxyCODONE-aceta minophen (PERCOCET) 5-325 mg tablet Take 1 tablet by mouth every 4 (four) hours as needed for pain. 120 Tablet 01/12/2024 10:09 AM ACCOUNT SUPERVISOR 4 Active atorvastatin (LIPITOR) 40 mg tablet Take 1 Tablet (40 mg) by mouth daily at bedtime. 90 Tablet 2 04/07/2024 10:25 AM ACCOUNT SUPERVISOR 4 Active ofloxacin (FLOXIN) 0.3 % Drops Instill 10 drops into each ear daily for 7 days 5 mL 01/25/2024 10:02 AM ACCOUNT SUPERVISOR 4 Active fenofibrate (LOFIBRA) 160 mg Tablet Take 1 Tablet (160 mg) by mouth daily to lower triglycerides. 90 Tablet 2 01/30/2024 12:57 PM ACCOUNT SUPERVISOR 4 Active oxyCODONE-aceta minophen (PERCOCET) 5-325 mg tablet Take 1 tablet by mouth 4 (four) times a day as needed for pain 120 Tablet 5 Active oxyCODONE-aceta minophen (PERCOCET) 5-325 mg tablet Take 1 tablet by mouth every 4 (four) hours as needed for pain 120 Tablet 2024 8:39 AM ACCOUNT SUPERVISOR 5 Active oxyCODONE-aceta minophen (PERCOCET) 5-325 mg tablet Take 1 tablet by mouth 4 (four) times a day as needed for pain 120 Tablet 03/12/2024 10:42 AM ACCOUNT SUPERVISOR 5 Active Encounters Date Type Department Care Team Description 04/04/2024 External Device Data [facility] ABSTRACTION Provider, Abstract from Last 3 Months Social History Tobacco Use Types Packs/Day Years [...]
== END 2024-04-12 08:51 | disposition home or self-care (01) ==
PROVIDERS: Visit Provider Orthopaedic Surgery
DX: M16.12 Unilateral primary osteoarthritis, left hip (principal)
CPT/HCPCS: 20610; 77002; J1010

== ENCOUNTER 2024-08-05 06:39 | Outpatient (CLI) | payer OTHER, MEDICARE, SELFPAY ==
[2024-08-05 08:01] LABS: Hematocrit 42.1 % (42.0-52.0); Hemoglobin 14.3 g/dL (14.0-18.0); Mean Corpuscular Hemoglobin 28.4 pg (26-34); Mean Corpuscular Volume 83.7 fl (80-100); Mean Platelet Volume 10.9 fl (7.4-10.4); Platelet Count Result 202 k/mm3 (150-375); Red Blood Count 5.03 M/mm3 (4.6-6.20); White Blood Count 6.7 K/mm3 (4.5-10.0)
[2024-08-05 08:25] LABS: Alanine Aminotransferase 64 U/L (6-50); Albumin Level 4.7 g/dL (3.5-5.1); Alkaline Phosphatase 51 U/L (38-126); Anion Gap 13 mmol/L (4-12); Aspartate Amino Transferase 48 U/L (17-59); Bilirubin,Total 0.8 mg/dL (0.2-1.3); Blood Urea Nitrogen 17 mg/dL (9-20); Calcium 9.6 mg/dL (8.4-10.2); Carbon Dioxide 23 mmol/L (22-30); Chloride 105 mmol/L (98-107); Cholesterol 150 mg/dL (0-200); Estimated Glomerular Filt Rate > 60; Glucose 150 mg/dL (65-110); HDL Direct 24 mg/dL; Potassium 4.1 mmol/L (3.4-5.0); Sodium 141 mmol/L (137-145); Total Protein 7.7 g/dL (6.3-8.2); Triglycerides 268 mg/dL (<150)
[2024-08-05 08:36] LABS: LDL Cholesterol Direct 82 mg/dL
[2024-08-05 08:49] LABS: Hemoglobin A1C 6.5 % (<5.7)
[2024-08-05 08:58] LABS: Prostate Specific Antigen 0.6 ng/mL (< OR = 4.0); Thyroid Stimulating Hormone 0.969 uIU/mL (0.465-4.680)
[2024-08-05 09:52] LABS: Creatinine Urine 160.5 mg/dL
[2024-08-05 09:55] LABS: MALB Creatinine Ratio 5.9 mg/g (0-30); Microalbumin Urine Random 9.4 mg/L (0-16.7)
== END 2024-08-05 06:40 | disposition home or self-care (01) ==
PROVIDERS: PCP Nurse Practitioner Family; Visit Provider Internal Medicine Cardiovascular Disease
DX: F41.9 Anxiety disorder, unspecified (principal); I10 Essential (primary) hypertension; E78.2 Mixed hyperlipidemia; E11.9 Type 2 diabetes mellitus without complications; E55.9 Vitamin D deficiency, unspecified; D64.9 Anemia, unspecified; I25.10 Atherosclerotic heart disease of native coronary artery without angina pectoris; Z12.5 Encounter for screening for malignant neoplasm of prostate
CPT/HCPCS: 36415; 80053; 80061; 82043; 82306; 82607; 83036; 84153; 84443; 85027; G0103